=== PATIENT | female | born 1935 | race Caucasian/White ===

== ENCOUNTER 2021-10-06 13:05 | Inpatient (IN) | payer MEDICARE, OTHER, SELFPAY ==
[2021-10-06] VITALS (10 sets, daily range): BP systolic 117–171; BP diastolic 58–80; PULSE 57–70; RESP 14–18; TEMP 36.4–37.2; O2SAT 89–100; BMI 29.7; BMI 31.6
--- NOTE | ~2021-10-06 | CT_ITS ---
EXAMINATION: CT HEAD WITHOUT CONTRAST CT CERVICAL SPINE WITHOUT CONTRAST CLINICAL INFORMATION: Fall. On Eliquis COMPARISON: CT head 03/11/2019 TECHNIQUE: Imaging was performed from the skull base to vertex without intravenous administration of contrast. In addition, helical noncontrast CT imaging was acquired through the cervical spine and source images were reviewed along with axial reconstructions and sagittal and coronal MPRs. [This CT examination was performed using dose optimization techniques as appropriate, variously including the following: *Automated exposure control *Adjustment of mA and/or kV according to patient size (this includes techniques or standardized protocols for targeted exams where dose is matched to indication/reason for exam; i.e. extremities or head) *Use of iterative reconstruction technique] DLP: 2554 mGy-cm FINDINGS: HEAD: No intracranial mass, hemorrhage, or midline shift is visualized. There is generalized global volume loss. There is moderate prominence of the ventricles and the sulci . There is moderate hypodensity of the periventricular white matter due to chronic small vessel ischemic disease. There are vascular calcifications of the internal carotid arteries bilaterally. No extra-axial collections are identified. The paranasal sinuses and mastoid air cells are well aerated. CERVICAL SPINE: There is no evidence of acute cervical spine fracture. Vertebral bodies remain normal in height. Cervical vertebrae have normal alignment. There is multilevel degenerative spondylosis of the cervical spine with disc height narrowing and endplate spurs and facet joint arthrosis No pre- or paravertebral soft tissue abnormality is identified. Limited assessment of the lung apices is unremarkable. CT/CT cervical spine wo con IMPRESSION: 1. No acute intracranial pathology. 2. No CT evidence of acute cervical spine fracture or traumatic subluxation
--- NOTE | ~2021-10-06 | XR_ITS ---
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 The prostheses are in good position. No fractures or dislocations are seen. No pelvic fracture is identified. There is a comminuted fracture involving the distal left femoral metaphysis generalized osteopenia is present. No significant fracture fragment angulation is seen. The distal fracture fragment is slightly lateral. Tricompartmental degenerative changes present in the knee. Marked calcifications are seen. XR/XR knee LT 2V IMPRESSION: Comminuted distal left femoral metaphyseal fracture.
--- NOTE | ~2021-10-06 | XR_ITS ---
EXAMINATION: XR CHEST CLINICAL INFORMATION: Fracture of femur. COMPARISON: Chest x-ray 06/20/2019 TECHNIQUE: Frontal view of the chest was obtained. 4:44 PM FINDINGS: Lungs are clear. No pulmonary vascular congestion. There is no pleural effusion. The heart size is normal. The cardiac and mediastinal contours are normal. There are calcifications of the thoracic aorta. There are multilevel degenerative changes of dorsal spine. XR/XR chest 1V IMPRESSION: Unremarkable examination.
--- NOTE | ~2021-10-06 | CT_ITS ---
EXAMINATION: CT OF THE LEFT KNEE WITHOUT CONTRAST. CLINICAL INFORMATION: Left distal femoral fracture. COMPARISON: Radiographs from the same date. TECHNIQUE: Multidetector volumetric imaging was obtained through the left distal femur without contrast. Multiplanar reformatted images in coronal and sagittal orientations were submitted. This CT examination was performed using dose optimization techniques as appropriate, variously including the following: *Automated exposure control *Adjustment of mA and/or kV according to patient size (this includes techniques or standardized protocols for targeted exams where dose is matched to indication/reason for exam; i.e. extremities or head) *Use of iterative reconstruction technique DLP: 263 mGy-cm FINDINGS: Bones are osteopenic. There is a comminuted fracture of the distal femoral metadiaphysis with a nondisplaced sagittally oriented component extending into the central trochlear groove and medial trochlear facet. No additional involvement of the articular surfaces of the distal femur. The metaphyseal cortical fragments are all mildly displaced. There is slight valgus angulation of the dominant femoral fracture fragments as well as posterior displacement of the distal fracture fragment (0.5 to 1 cm). There is a large lipohemarthrosis. Proximal tibia and fibula are intact. Patella is intact. There is moderate tricompartmental osteoarthritis with nonuniform joint space narrowing, marginal osteophytes, and articular cortical remodeling. Soft tissue swelling and subcutaneous edema are present around the knee circumferentially. Mild to moderate generalized muscle atrophy. No large extra-articular hematomas are identified. Calcific atherosclerosis is present in the popliteal and runoff arteries. CT/CT knee LT wo con IMPRESSION: Comminuted distal femoral metadiaphyseal fracture with nondisplaced intra-articular extension into the trochlea. Large lipohemarthrosis. Moderate tricompartmental osteoarthritis.
--- NOTE | ~2021-10-06 | XR_ITS ---
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 The prostheses are in good position. No fractures or dislocations are seen. No pelvic fracture is identified. There is a comminuted fracture involving the distal left femoral metaphysis generalized osteopenia is present. No significant fracture fragment angulation is seen. The distal fracture fragment is slightly lateral. Tricompartmental degenerative changes present in the knee. Marked calcifications are seen. XR/XR hip LT min 2V IMPRESSION: Comminuted distal left femoral metaphyseal fracture.
--- NOTE | ~2021-10-06 | XR_ITS ---
EXAMINATION: XR FEMUR, LEFT CLINICAL INFORMATION: Evaluate fracture COMPARISON: Knee films done earlier TECHNIQUE: AP and lateral views of the left femur were obtained. FINDINGS: Proximal prosthesis is noted. No acute finding on single image in that vicinity. Once again comminuted fracture of the distal femur is noted. Fracture fragments distracted about the fracture site. I cannot exclude that fracture lines would communicate with the articulation. XR/XR femur LT 2V IMPRESSION: Once again comminuted fracture the distal femur is seen with distraction fracture sites about the region. Cannot exclude communication with the articulation.
--- NOTE | 2021-10-06 13:24 | ED.FALL ---
HPI - Fall General Chief Complaint: Fall Stated Complaint: FALL OOB,HIP PAIN W/SHORTENING [facility] Time Seen by Provider: 10/06/21 13:24 Source: patient and EMS Mode of arrival: EMS Limitations: no limitations History of Present Illness HPI Narrative: Patient is an 85 year old female presenting to the emergency department today with left knee pain and left hip pain after a fall. Patient states that she was attempting to get out of bed when she tripped and fell. Patient states that she landed directly on her left knee and then rolled onto her left hip. Patient states that she lives in a shelter facility and takes eliquis. Patient states that she cannot usually ambulate well and uses a wheelchair and a walker. Patient denies any dizziness, lightheadedness, abdominal pain, nausea, vomiting, fever, chills, blurry vision, double vision, loss of vision, chest pain, difficulty breathing, shortness of breath, back pain, night sweats, pain with urination, increased urinary frequency, increased urinary urgency, blood in her urine or stool, syncope or a near syncopal episode, bowel incontinence, bladder incontinence, bowel retention, bladder retention, or any other complaints at this time. MD complaint: fall Onset (ago): minute(s) Fall from: out of bed Fall witnessed: yes, by living facility staff Place fall occurred: [facility] Loss of consciousness: none Prolonged down time: no Symptoms prior to fall: none Context: tripped/slipped Location of injury: other (left knee and hip) Severity: mild Severity scale (1-10): 4 Quality: dull Related Data Home Medications Medication Instructions Recorded Confirmed acetaminophen 325 mg tablet 650 mg PO Q4H PRN 10/06/21 10/06/21 amlodipine 5 mg tablet 1 tab PO BEDTIME 10/06/21 10/06/21 apixaban 5 mg tablet (Eliquis) 1 tab PO BID 10/06/21 10/06/21 bisacodyl 10 mg rectal suppository 10 mg MD DAILY PRN 10/06/21 10/06/21 citalopram 20 mg tablet 1 tab PO DAILY 10/06/21 10/06/21 dextrose 40 % oral gel (Glucose 10 g PO ONCE PRN 10/06/21 10/06/21 Gel) glucagon HCl 1 mg solution for 1 mg SUBCUT ONCE PRN 10/06/21 10/06/21 injection (Glucagon (HCl) Emergency Kit) insulin aspart U-100 100 unit/mL See Protocol SUBCUT TIDAC 10/06/21 10/06/21 subcutaneous solution (Novolog U-100 Insulin aspart) insulin detemir U-100 100 unit/mL 30 unit SUBCUT DAILY 10/06/21 10/06/21 subcutaneous solution (Levemir U-100 Insulin) insulin detemir U-100 100 unit/mL 38 unit SUBCUT BEDTIME 10/06/21 10/06/21 subcutaneous solution (Levemir U-100 Insulin) lisinopril 10 mg tablet 1 tab PO DAILY 10/06/21 10/06/21 magnesium hydroxide 400 mg/5 mL 30 ml PO DAILY PRN 10/06/21 10/06/21 oral suspension (Milk of Magnesia) metoprolol tartrate 25 mg tablet 75 mg PO BID 10/06/21 10/06/21 naloxone 4 mg/actuation nasal spray 4 mg INTRANASAL BID PRN 10/06/21 10/06/21 sennosides 8.6 mg tablet (senna) 17.2 mg PO BEDTIME 10/06/21 10/06/21 sitagliptin 100 mg tablet (Januvia) 1 tab PO DAILY 10/06/21 10/06/21 Allergies Allergy/AdvReac Type Severity Reaction Status Date / Time No Known Allergies Allergy Mild NKA Unverified 03/04/20 14:52 Review of Systems Constitutional: Constitutional: Reports no additional constitutional complaints, Denies chills, Denies fever(s) and Denies night sweats Eyes: Eyes: Reports no additional eye complaints, Denies blurry vision, Denies change in vision, Denies diplopia, Denies eye discharge, Denies loss of vision and Denies eye pain ENT: Denies dizziness Cardiovascular: Cardiovascular: Reports no additional cardiovascular complaints, Denies chest pain, Denies lightheadedness, Denies Loss of Consciousness and Denies dyspnea Respiratory: Respiratory: Reports no additional respiratory complaints and Denies dyspnea Gastrointestinal: Gastrointestinal: Reports no additional gastrointestinal complaints, Denies abdominal pain, Denies melena, Denies hematochezia, Denies change in bowel habits and Denies change in stool character Genitourinary: Genitourinary: Denies hematuria, Denies urinary frequency, Denies dysuria, Denies urinary incontinence, Denies urinary hesitancy and Denies urinary urgency Musculoskeletal: Musculoskeletal: Reports no additional musculoskeletal complaints, Denies numbness and Denies tingling Comments: left knee pain, left hip pain Neurologic: Denies dizziness, Denies loss of vision, Denies numbness and Denies tingling Psychiatric: Psychiatric: Reports no additional psychiatric complaints Endocrine: Endocrine: Reports no additional endocrine complaints Hematologic/Lymphatic: Hematologic/Lymphatic: Reports no additional hematologic/lymphatic complaints Allergic/Immunologic: Allergic/Immunologic: Reports no additional allergic/immunologic complaints [facility] Past Medical History Attestation statement: The following information was validated with the patient. Source: old records reviewed Medical History Cognitive communication deficit COVID-19 DM (diabetes mellitus) Dysphagia Hyperlipemia Hyperparathyroidism Major depression Paroxysmal A-fib SVT (supraventricular tachycardia) Social History Social History Smoked in Last 30 Days: No Use of substances other than those prescribed or required for medical reasons: No Advance Directives: Yes Advance Directives on File: Yes Advance Directives Date on File: 10/06/21 Physical Exam Vital Signs: Vital Signs: Last Vital Signs Temp 98.3 F 10/06/21 14:58 Pulse 58 10/06/21 14:58 Resp 16 10/06/21 14:58 BP 164/70 H 10/06/21 14:58 Pulse Ox 95 10/06/21 14:58 BMI result Body Mass Index 29.7 Const: General: cooperative, no acute distress, alert and awake Nutritional Appearance: well nourished Orientation/consciousness: patient oriented x3 Limitations: no limitations HEENT: Head: Yes normal to inspection and Yes atraumatic Ears: hearing grossly normal bilaterally and external ears normal General nose exam: Normal external nose present, no nasal discharge noted and no epistaxis Face and sinus: Yes normal facial exam, No abrasion and No laceration Mouth: Normal oral and palatal mucosa present, no drooling and no muffled voice Eyes: General: appearance normal, both eyes and all related structures Periorbital: periorbital findings normal Eyelids: Yes eyelids normal Conjunctivae: conjunctivae normal Pupils: Equal, round and reactive pupils present EOM: EOMs intact bilaterally Neck: Neck: Yes normal visual inspection, Yes full ROM and Yes no lymphadenopathy Chest: Chest palpation & inspection: normal inspection of the chest Resp: Effort & Inspection: normal respiratory effort and able to speak in complete sentences Auscultation: clear to auscultation bilaterally Cardio: Rate: regular rate Rhythm: regular rhythm GI: Inspection: Yes normal to inspection Neuro: General: patient oriented x3 and moves all extremities Cranial nerves: Yes Equal, round and reactive pupils present Cognition (Neuro): normal cognition Motor exam (neuro): 5/5 motor strength present throughout Sensory Exam: Normal double simultaneous stimulation for sensation Coordination: [id number] test normal Extrem: Other: pain with palpation to the left thigh General: Yes capillary refill normal Psych: Appearance: grossly normal Mental Status: mental status grossly normal Affect: normal affect Attitude: cooperative Thought process: Normal thought process present Thought content: Normal thought content present Insight: Good insight present (Psych) MDM - Fall MDM Narrative Medical decision making narrative: Patient is an 85 year old female presenting to the emergency department today with left knee and left hip pain. Patient's physical exam showed tenderness to palpation of the left femur but was otherwise unremarkable. Patient's blood work showed an elevated white blood cell count however, I am not suspicious of infection or sepsis in this patient. Patient's EKG was unremarkable. Patient's head and C-Spine CTs were negative. Patient's extensive imaging of the left lower extremity showed a comminuted fracture of the left femur. I explained my physical exam findings as well as all test results to the patient. I answered all questions asked by the patient. I spoke to orthopedics consultant intern who recommended the patient have a CT of the left lower leg and be admitted to medicine. I spoke to Dr. Wang, who agreed to hospital admission. Patient verbalized agreement and understanding with this treatment plan and admission. Differential Diagnosis Differential diagnosis: Likely fracture and compression fracture Medical Records Attestation: I reviewed the patient's medical records. Lab Data Attestation: I reviewed the patient's lab results. Result diagrams: 10/06/21 16:09 10/06/21 16:09 Labs: Lab Results 10/06/21 10/06/21 10/06/21 Range/Units 16:09 16:09 16:09 WBC 17.2 H (4.8-10.8) X10*3/uL RBC 4.24 (4.20-5.50) X10*6/uL Hgb 12.5 (12.0-16.0) g/dl Hct 38.6 (37.0-47.0) % MCV 91.0 (80.0-98.0) fL MCH 29.5 (27.0-33.0) pg MCHC 32.4 (31.0-35.0) g/dl RDW 13.2 (11.0-16.0) % Plt Count 175 (160-400) X10*3/uL MPV 12.3 (9.4-12.3) fL Immature Gran % (Auto) 0.6 H (0.0-0.4) % Neut % (Auto) 86.7 H (45-73) % Lymph % (Auto) 8.0 L (20-40) % Alcorn % (Auto) 4.1 (2-11) % Eos % (Auto) 0.3 (0-4) % Baso % (Auto) 0.3 (0-2) % Lymph # (Auto) 1.4 (1.2-4.9) X10*3/uL Alcorn # (Auto) 0.7 (0.1-1.2) X10*3/uL Eos # (Auto) 0.1 (0.0-0.4) X10*3/uL Baso # (Auto) 0.1 (0.0-0.2) X10*3/uL Abs Immat Gran (auto) 0.10 H (0.00-0.03) X10*3/uL Absolute Neuts (auto) 14.9 H (2.0-8.3) x10*3/uL Absolute Nucleated RBC 0.000 (0.0-0.012) X10*3/uL Nucleated RBC % (auto) 0.0 (0.0-0.2) /100WBC PT 15.0 H (9.9-13.0) SEC INR 1.3 H (0.9-1.1) APTT 32.5 (24.1-38.0) SEC Sodium 136 (135-145) mmol/L Potassium 4.6 (3.3-5.1) mmol/L Chloride 102 (96-108) mmol/L Carbon Dioxide 26 (22-29) mmol/L Anion Gap 13 (12-20) BUN 13 (9-16) mg/dL Creatinine 0.86 (0.5-1.4) mg/dL Estim Creat Clear Calc 54.9 Estimated GFR > 60 Random Glucose 311 H (60-115) mg/dL Calcium 11.0 H (8.4-10.2) mg/dL Total Bilirubin 0.5 (0.0-1.0) mg/dL AST 25 (5-31) U/L ALT 21 (0-31) U/L Alkaline Phosphatase 73 (39-117) U/L Total Protein 7.3 (6.5-8.0) g/dL Albumin 3.4 L (3.5-5.0) g/dL Imaging Data Left hip and left knee x-ray: Attestation: I personally reviewed and interpreted this imaging study as follows: My impression: femur fracture Radiologist's impression: EXAMINATION: LEFT HIP, LEFT CLINICAL INFORMATION: Fall with left hip and left knee pain? COMPARISON: None? TECHNIQUE: 2 views pelvis with 3 additional views left hip, 3 views left knee? 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 The prostheses are in good position. No fractures or dislocations are seen. No pelvic fracture is identified. There is a comminuted fracture involving the distal left femoral metaphysis generalized osteopenia is present. No significant fracture fragment angulation is seen. The distal fracture fragment is slightly lateral. Tricompartmental degenerative changes present in the knee. Marked calcifications are seen.? XR/XR hip LT min 2V IMPRESSION: Comminuted distal left femoral metaphyseal fracture.? Dictated By: Raffy Ch MD Signed By: Electronically signed by Raffy Ch MD 10/06/[address] Cervical Spine: Attestation: I personally reviewed and interpreted this imaging study as follows: My impression: No acute process. Radiologist's impression: EXAMINATION: CT HEAD WITHOUT CONTRAST CT CERVICAL SPINE WITHOUT CONTRAST CLINICAL INFORMATION: Fall. On Eliquis? COMPARISON: CT head 03/11/2019 TECHNIQUE: Imaging was performed from the skull base to vertex without intravenous administration of contrast. In addition, helical noncontrast CT imaging was acquired through the cervical spine and source images were reviewed along with axial reconstructions and sagittal and coronal MPRs. [This CT examination was performed using dose optimization techniques as appropriate, variously including the following: *Automated exposure control *Adjustment of mA and/or kV according to patient size (this includes techniques or standardized protocols for targeted exams where dose is matched to indication/reason for exam; i.e. extremities or head) *Use of iterative reconstruction technique] DLP: 2554 mGy-cm FINDINGS: HEAD: No intracranial mass, hemorrhage, or midline shift is visualized. There is generalized global volume loss. There is moderate prominence of the ventricles and the sulci . There is moderate hypodensity of the periventricular white matter due to chronic small vessel ischemic disease. There are vascular calcifications of the internal carotid arteries bilaterally. No extra-axial collections are identified. The paranasal sinuses and mastoid air cells are well aerated. CERVICAL SPINE: There is no evidence of acute cervical spine fracture. Vertebral bodies remain normal in height. Cervical vertebrae have normal alignment. There is multilevel degenerative spondylosis of the cervical spine with disc height narrowing and endplate spurs and facet joint arthrosis No pre- or paravertebral soft tissue abnormality is identified. Limited assessment of the lung apices is unremarkable. CT/CT cervical spine wo con IMPRESSION: 1. No acute intracranial pathology. 2. No CT evidence of acute cervical spine fracture or traumatic subluxation Dictated By: Isra Wong MD Signed By: Electronically signed by Isra Wong MD 10/06/[address]: Attestation: I personally reviewed and interpreted this imaging study as follows: My impression: femur fracture Radiologist's impression: EXAMINATION: CT OF THE LEFT KNEE WITHOUT CONTRAST. CLINICAL INFORMATION: Left distal femoral fracture.? COMPARISON: Radiographs from the same date.? TECHNIQUE: Multidetector volumetric imaging was obtained through the left distal femur without contrast. Multiplanar reformatted images in coronal and sagittal orientations were submitted. This CT examination was performed using dose optimization techniques as appropriate, variously including the following: *Automated exposure control *Adjustment of mA and/or kV according to patient size (this includes techniques or standardized protocols for targeted exams where dose is matched to indication/reason for exam; i.e. extremities or head) *Use of iterative reconstruction technique DLP: 263 mGy-cm FINDINGS: Bones are osteopenic. There is a comminuted fracture of the distal femoral metadiaphysis with a nondisplaced sagittally oriented component extending into the central trochlear groove and medial trochlear facet. No additional involvement of the articular surfaces of the distal femur. The metaphyseal cortical fragments are all mildly displaced. There is slight valgus angulation of the dominant femoral fracture fragments as well as posterior displacement of the distal fracture fragment (0.5 to 1 cm). There is a large lipohemarthrosis. Proximal tibia and fibula are intact. Patella is intact. There is moderate tricompartmental osteoarthritis with nonuniform joint space narrowing, marginal osteophytes, and articular cortical remodeling. Soft tissue swelling and subcutaneous edema are present around the knee circumferentially. Mild to moderate generalized muscle atrophy. No large extra-articular hematomas are identified. Calcific atherosclerosis is present in the popliteal and runoff arteries. CT/CT knee LT wo con IMPRESSION: Comminuted distal femoral metadiaphyseal fracture with nondisplaced intra-articular extension into the trochlea. ? Large lipohemarthrosis. ? Moderate tricompartmental osteoarthritis. <Electronically kelley 10/06/21 1703 ECG Data Attestation: I personally reviewed and interpreted this ECG as follows: ECG interpretation date: 10/06/21 ECG interpretation time: 17:05 Prior ECG tracings: available for review Interpretation: Vent. Rate: 063 BPM ? ? Atrial Rate: 060 BPM P-R Int: 140 ms? QRS Dur: 086 ms QT Int: 434 ms ? ? ? P-R-T Axes: 052 069 094 degrees QTc Int: 444 ms Undetermined rhythm Nonspecific ST abnormality Abnormal ECG When compared with ECG of 20-JUN-2019 18:21, Current undetermined rhythm precludes rhythm comparison, needs review DD/ [id number] Discharge Plan Discharge Clinical Impression: Closed femur fracture, Fall Patient Disposition: Admitted As Inpatient Print Language: Icelandic
[2021-10-06 16:14] LABS: MANUAL DIFF FLAG NO
[2021-10-06 16:15] LABS: Basophils Absolute Auto 0.1 X10*3/uL (0.0-0.2); Basophils Percent Auto 0.3 % (0-2); Eosinophils Absolute Auto 0.1 X10*3/uL (0.0-0.4); Eosinophils Percent Auto 0.3 % (0-4); Hematocrit 38.6 % (37.0-47.0); Hemoglobin 12.5 g/dl (12.0-16.0); Imm Gran Pct Auto 0.6 % (0.0-0.4); Lymphocytes Absolute Auto 1.4 X10*3/uL (1.2-4.9); Mean Corpuscular HGB Conc 32.4 g/dl (31.0-35.0); Mean Corpuscular Hemoglobin 29.5 pg (27.0-33.0); Mean Platelet Volume 12.3 fL (9.4-12.3); Monocytes Absolute Auto 0.7 X10*3/uL (0.1-1.2); Monocytes Percent Auto 4.1 % (2-11); Neutrophils Absolute Auto 14.9 x10*3/uL (2.0-8.3); Neutrophils Percent Auto 86.7 % (45-73); Platelet Count 175 X10*3/uL (160-400); Red Blood Count 4.24 X10*6/uL (4.20-5.50); Red Cell Distribution Width 13.2 % (11.0-16.0); White Blood Count 17.2 X10*3/uL (4.8-10.8)
[2021-10-06 16:28] LABS: INTERNATIONAL NORM RATIO 1.3 (0.9-1.1)
[2021-10-06 16:31] LABS: Alanine Aminotransferase 21 U/L (0-31); Albumin Level 3.4 g/dL (3.5-5.0); Alkaline Phosphatase 73 U/L (39-117); Anion Gap 13 (12-20); Aspartate Amino Transferase 25 U/L (5-31); Bilirubin Total 0.5 mg/dL (0.0-1.0); Blood Urea Nitrogen 13 mg/dL (9-16); Carbon Dioxide 26 mmol/L (22-29); Chloride 102 mmol/L (96-108); Creatinine Clr Calc Pharmacy 54.9; Estimated Glomerular Filt Rate > 60; Glucose Random 311 mg/dL (60-115); Partial Thromboplastin Time 32.5 SEC (24.1-38.0); Potassium 4.6 mmol/L (3.3-5.1); Sodium 136 mmol/L (135-145); Total Protein 7.3 g/dL (6.5-8.0)
--- NOTE | 2021-10-06 16:42 | ECG_ITS ---
Test Reason : HX OF AFIB Blood Pressure : / mmHG Vent. Rate : 063 BPM Atrial Rate : 060 BPM P-R Int : 140 ms QRS Dur : 086 ms QT Int : 434 ms P-R-T Axes : 052 069 094 degrees QTc Int : 444 ms Normal sinus rhythm Nonspecific ST abnormality Abnormal ECG When compared with ECG of 20-JUN-2019 18:21, Nonspecific ST abnormality noted Referred By: May Duncan Electronically Signed By:ELA FINCH MD
--- NOTE | 2021-10-06 17:18 | PHA.MEDREC ---
Pharmacy Consult ? Medication Reconciliation Pharmacy has completed the medication reconciliation. No remarkable issues. Mitzi Rosas, AntoineD
[2021-10-06] MEDS: Morphine Sulfate 4 MG/ML CARTRIDGE IVPUSH (17:57)
[2021-10-06] MEDS: ondansetron HCL 4 MG/2 ML VIAL IVPUSH (17:58)
--- NOTE | 2021-10-06 18:07 | PC.NURSE ---
pt desat to 89% after morphine admin, placed on 2lpm, 95% at this time
[2021-10-06 18:08] LABS: COVID-19 Test Negative (Negative); IDNOW Serial# 16C4AD1C
[2021-10-06 18:08] LABS: Phosphorus 2.2 mg/dL (2.7-4.5)
--- NOTE | 2021-10-06 18:29 | P.HPHOSP_ITS ---
History of Present Illness Date of Service: 10/06/21 Attending physician on admission: Vale Wang Chief Complaint: knee fx History was taken with the help of miss britney shaw patient's primary contact as well as patient. 85-year-old female past medical history of hypertension, hyperlipidemia, diabetes, ch afib, also history of possible cognitive impairment -patient came to the hospital status post fall, It seems that the patient is mostly bedbound 2-3 years and she was trying to get out of the bed today and then she fell down and afterwards started having knee pain and was sent to the emergency room for evaluation for that. Patient uses a wheelchair barely weekly. Spoke to the art therapy specialist and patient: Denied any palpitation or chest pain or shortness of breath or cough or any nausea or vomiting or fever or chills or any urinary complaints or abdominal pain or fever or chills. Patient has knee pain. HPI is limited because patient is poor historian. Review of Systems Review of Systems: As above. Yes all other systems are reviewed and are negative [facility] Medical History Cognitive communication deficit COVID-19 DM (diabetes mellitus) Dysphagia Hyperlipemia Hyperparathyroidism Major depression Paroxysmal A-fib SVT (supraventricular tachycardia) Pertinent family history: Patient does not remember any family history, her primary contact does not remember if any family member has any medical issues. Social History Smoked in Last 30 Days: No Use of substances other than those prescribed or required for medical reasons: No Advance Directives: Yes Advance Directives on File: Yes Advance Directives Date on File: 10/06/21 Meds Allergies Allergy/AdvReac Type Severity Reaction Status Date / Time No Known Allergies Allergy Mild NKA Unverified 03/04/20 14:52 Active Medications: Current Medications Acetaminophen (Acetaminophen 325 Mg Tablet) 650 mg PO Q4H PRN PRN Reason: Fever Amlodipine Besylate (Amlodipine Besylate 5 Mg Tablet) 5 mg PO BEDTIME MARYAN; Protocol Bisacodyl (Bisacodyl 10 Mg Supp.Rect) 10 mg OH DAILY PRN PRN Reason: Constipation Escitalopram Oxalate (Escitalopram Oxalate 10 Mg Tablet) 10 mg PO DAILY MARYAN Glucose (Glucose Gel 15 Gm Gel..Gram.) 10 gm PO ONCE PRN PRN Reason: Hypoglycemia Lactated Ringer's (Lr) 1,000 mls @ 80 mls/hr IVCONT .[id number] [facility] Insulin Glargine (Insulin Glargine,Hum.Rec.Anlog 100 Unit/Ml 10 Ml Vial) 21 unit SUBCUT DAILY [facility] Insulin Glargine (Insulin Glargine,Hum.Rec.Anlog 100 Unit/Ml 10 Ml Vial) 26 unit SUBCUT BEDTIME [facility] Insulin Human Lispro (Insulin Lispro 100 Unit/Ml 3 Ml Vial) 0 unit SUBCUT QIDACHS [facility]; Protocol Lisinopril (Lisinopril 10 Mg Tablet) 10 mg PO DAILY [facility]; Protocol Magnesium Hydroxide (Milk Of Magnesia 30 Ml Oral.Susp) 30 ml PO DAILY PRN PRN Reason: Constipation Metoprolol Tartrate (Metoprolol Tartrate 25 Mg Tablet) 75 mg PO BID [facility]; Protocol Naloxone HCl (Naloxone Hcl Nasal 4 Mg [place]) 4 mg NOSTRILALT BID PRN PRN Reason: Drug Intoxication Symptoms Pharmacy Consult (Consult Rx Perform Med Rec) 1 each MISCELLANE ONCE PRN PRN Reason: Consult order Senna (Sennosides 8.6 Mg Tablet) 17.2 mg PO BEDTIME [facility] Sitagliptin Phosphate (Sitagliptin Phosphate 100 Mg Tablet) 100 mg PO DAILY [facility] Sodium Chloride (0.9 % Sodium Chloride Flush 3 Ml Syringe) 3 ml IVFLUSH QSHIFT [facility] Home Medications Medication Instructions Recorded Confirmed Last Taken Type acetaminophen 325 mg tablet 650 mg PO Q4H PRN 10/06/21 10/06/21 Unknown History amlodipine 5 mg tablet 1 tab PO BEDTIME 10/06/21 10/06/21 Unknown History apixaban 5 mg tablet (Eliquis) 1 tab PO BID 10/06/21 10/06/21 Unknown History bisacodyl 10 mg rectal suppository 10 mg OH DAILY PRN 10/06/21 10/06/21 Unknown History citalopram 20 mg tablet 1 tab PO DAILY 10/06/21 10/06/21 Unknown History dextrose 40 % oral gel (Glucose 10 g PO ONCE PRN 10/06/21 10/06/21 Unknown History Gel) glucagon HCl 1 mg solution for 1 mg SUBCUT ONCE PRN 10/06/21 10/06/21 Unknown History injection (Glucagon (HCl) Emergency Kit) insulin aspart U-100 100 unit/mL See Protocol SUBCUT TIDAC 10/06/21 10/06/21 Unknown History subcutaneous solution (Novolog U-100 Insulin aspart) insulin detemir U-100 100 unit/mL 30 unit SUBCUT DAILY 10/06/21 10/06/21 Unknown History subcutaneous solution (Levemir U-100 Insulin) insulin detemir U-100 100 unit/mL 38 unit SUBCUT BEDTIME 10/06/21 10/06/21 Unknown History subcutaneous solution (Levemir U-100 Insulin) lisinopril 10 mg tablet 1 tab PO DAILY 10/06/21 10/06/21 Unknown History magnesium hydroxide 400 mg/5 mL 30 ml PO DAILY PRN 10/06/21 10/06/21 Unknown History oral suspension (Milk of Magnesia) metoprolol tartrate 25 mg tablet 75 mg PO BID 10/06/21 10/06/21 Unknown History naloxone 4 mg/actuation nasal spray 4 mg INTRANASAL BID PRN 10/06/21 10/06/21 Unknown History sennosides 8.6 mg tablet (senna) 17.2 mg PO BEDTIME 10/06/21 10/06/21 Unknown History sitagliptin 100 mg tablet (Januvia) 1 tab PO DAILY 10/06/21 10/06/21 Unknown History Physical Exam Vital Signs and Narrative: Vital Signs: Last Vital Signs Temp 98.3 F 10/06/21 14:58 Pulse 69 10/06/21 18:02 Resp 14 10/06/21 18:02 BP 162/58 H 10/06/21 18:04 Pulse Ox 94 10/06/21 18:06 BMI result Body Mass Index 29.7 Appearance: Alert.? Oriented X2.? not in distress.? Eyes: Pupils equal, round and reactive to light.? Sclera nonicteric.? ENT: Pharynx normal.? Moist mucous membranes. cvs: rrr, [id number] , no murmur res: clear to auscultation ,no rhonchii or wheezing abd: no rebound or guarding ,nt, bs present. ext pulses present , no cyanosis left knee pain and mild swellin neuro: axo2 , nonfocal. Results Labs CBC and Chem 7: 10/06/21 16:09 10/06/21 16:09 Labs: Laboratory Results - last 24 hr 10/06/21 10/06/21 10/06/21 16:09 16:09 16:09 MCV 91.0 MCH 29.5 MCHC 32.4 RDW 13.2 Plt Count 175 MPV 12.3 Immature Gran % (Auto) 0.6 H Neut % (Auto) 86.7 H Lymph % (Auto) 8.0 L [place] % (Auto) 4.1 Eos % (Auto) 0.3 Baso % (Auto) 0.3 Lymph # (Auto) 1.4 [place] # (Auto) 0.7 Eos # (Auto) 0.1 Baso # (Auto) 0.1 Abs Immat Gran (auto) 0.10 H Absolute Neuts (auto) 14.9 H Absolute Nucleated RBC 0.000 Nucleated RBC % (auto) 0.0 PT 15.0 H INR 1.3 H APTT 32.5 Anion Gap 13 Estim Creat Clear Calc 54.9 Estimated GFR > 60 Random Glucose 311 H Calcium 11.0 H Phosphorus 2.2 L Total Bilirubin 0.5 AST 25 ALT 21 Alkaline Phosphatase 73 Total Protein 7.3 Albumin 3.4 L COVID-19 (SHANDA) COVID-19 Clin Com 10/06/21 17:40 MCV MCH MCHC RDW Plt Count MPV Immature Gran % (Auto) Neut % (Auto) Lymph % (Auto) [place] % (Auto) Eos % (Auto) Baso % (Auto) Lymph # (Auto) [place] # (Auto) Eos # (Auto) Baso # (Auto) Abs Immat Gran (auto) Absolute Neuts (auto) Absolute Nucleated RBC Nucleated RBC % (auto) PT INR APTT Anion Gap Estim Creat Clear Calc Estimated GFR Random Glucose Calcium Phosphorus Total Bilirubin AST ALT Alkaline Phosphatase Total Protein Albumin COVID-19 (SHANDA) Negative COVID-19 Clin Com See Note ECG Attestation: I personally reviewed and interpreted this ECG as follows: (nsr with very small p waves otherwise seems similar to previous ekg) Imaging Radiologist's Impressions: Impressions Hip X-Ray 10/06/21 14:22 IMPRESSION: Comminuted distal left femoral metaphyseal fracture. Knee X-Ray 10/06/21 14:22 IMPRESSION: Comminuted distal left femoral metaphyseal fracture. Cervical Spine CT 10/06/21 14:47 IMPRESSION: 1. No acute intracranial pathology. 2. No CT evidence of acute cervical spine fracture or traumatic subluxation Head CT 10/06/21 14:47 IMPRESSION: 1. No acute intracranial pathology. 2. No CT evidence of acute cervical spine fracture or traumatic subluxation Knee CT 10/06/21 16:41 IMPRESSION: Comminuted distal femoral metadiaphyseal fracture with nondisplaced intra-articular extension into the trochlea. Large lipohemarthrosis. Moderate tricompartmental osteoarthritis. Femur X-Ray 10/06/21 16:52 IMPRESSION: Once again comminuted fracture the distal femur is seen with distraction fracture sites about the region. Cannot exclude communication with the articulation. Assessment and Plan (1) Closed femur fracture: Status: Acute Plan 85-year-old female with multiple comorbidities including hypertension, dyslipidemia, diabetes, PAF: Came to the hospital after mechanical fall has right knee fracture. 1. Right knee fracture: NPO past midnight, hold Eliquis, surgery evaluation Incentive spirometry, Chest physiotherapy, pain control,base bowel regimen. 2. Hypertension: Hold lisinopril in anticipation of surgery Continue amlodipine, metoprolol 3. PAF: seems sinus moniter on tele moniter on tele continue bb,hold eliquis as above. 4. dm: Fingerstick with sliding scale coverage Hold Lantus 5. Cognitive impairment or dementia unclear etiology:long standing years As per the art therapy specialist she is at her baseline Supportive care. DVT prophylaxis:scd Above management discussed with patient art therapy specialist miss faustin had on in detail- she understand and in agreement with the above plan. Time spent 70 minute, patient is DNR. Considering knee fracture may need surgical intervention-patient may benefit from 2 midnight stay. Quality Stroke Does the patient have a stroke diagnosis?: No VTE Prior VTE?: No VTE Risk Level:: Medical - moderate - high VTE Device Contraindication: N/A - Device Ordered VTE Drug Contraindication: N/A - Med Ordered
[2021-10-06] MEDS: Lactated Ringers 1,000 ML 80 ML IVCONT (18:35)
--- NOTE | 2021-10-06 19:43 | PC.NURSE ---
called 4th floor to give report, was told RN will call back
--- NOTE | 2021-10-06 20:17 | PC.NURSE ---
Notified of admission at approximately 1935 while in process of admitting another patient. At 2001 pt arrived to floor without report from ED. Guide Escort notified.
[2021-10-06 20:26] LABS: Glucose, Whole Blood 306 mg/dL (60-115)
[2021-10-06 23:09] LABS: Glucose, Whole Blood 294 mg/dL (60-115)
[2021-10-06] MEDS: Insulin Lispro 100 UNIT/ML 3 ML VIAL SUBCUT (23:47)
[2021-10-07 02:57] VITALS: BP 125/65; PULSE 69; RESP 18; TEMP 36.8; O2SAT 97
[2021-10-07] MEDS: Lactated Ringers 1,000 ML 80 ML IVCONT (06:44)
[2021-10-07 06:45] LABS: Hematocrit 33.8 % (37.0-47.0); Hemoglobin 10.8 g/dl (12.0-16.0); Mean Corpuscular Hemoglobin 29.3 pg (27.0-33.0); Mean Corpuscular Volume 91.6 fL (80.0-98.0); Mean Platelet Volume 13.5 fL (9.4-12.3); Platelet Count 158 X10*3/uL (160-400); Red Blood Count 3.69 X10*6/uL (4.20-5.50); Red Cell Distribution Width 13.4 % (11.0-16.0); White Blood Count 12.6 X10*3/uL (4.8-10.8)
[2021-10-07 07:14] LABS: Glucose, Whole Blood 267 mg/dL (60-115)
[2021-10-07 07:18] VITALS: BP 141/62; PULSE 74; RESP 20; TEMP 37.2; O2SAT 96
[2021-10-07 07:30] LABS: Anion Gap 10 (12-20); Blood Urea Nitrogen 15 mg/dL (9-16); Calcium 10.7 mg/dL (8.4-10.2); Carbon Dioxide 27 mmol/L (22-29); Chloride 104 mmol/L (96-108); Creatinine Clr Calc Pharmacy 61.5; Estimated Glomerular Filt Rate > 60; Glucose Random 279 mg/dL (60-115); Potassium 4.6 mmol/L (3.3-5.1); Sodium 136 mmol/L (135-145)
--- NOTE | 2021-10-07 07:36 | P.HPOP_ITS ---
History of Present Illness History of Present Illness Date of Service: 10/07/21 Chief complaint: Knee Fracture Narrative: Opal Burciaga is a 85 year old female who presented to the emergency department yesterday afternoon after sustaining a fall out of bed. The patient has a question of cognitive impairment/dementia and therefore most the HPI was obtained from the ER notes. Patient has a past medical history significant for hypertension, hyperlipidemia, diabetes type 2, AFib on Eliquis in newly found chronic kidney disease stage 3. X-rays obtained in the emergency department of the left knee revealed a distal femur comminuted fracture. Orthopedics was consulted for further evaluation and treatment. The patient was admitted to the medicine service to obtain medical clearance. Review of Systems Review of Systems: Yes all other systems are reviewed and are negative PMFSH Past Medical History Medical History Cognitive communication deficit COVID-19 DM (diabetes mellitus) Dysphagia Hyperlipemia Hyperparathyroidism Major depression Paroxysmal A-fib SVT (supraventricular tachycardia) Social History Social History Housing: Assisted Living Facility Unable to assess alcohol history related to: Unable to respond Patient Tobacco Use Status: Tobacco use Unknown Advance Directives Date on File: 10/06/21 service: No Meds Allergies Allergy/AdvReac Type Severity Reaction Status Date / Time No Known Allergies Allergy Mild NKA Unverified 03/04/20 14:52 Active Medications: Current Medications Acetaminophen (Acetaminophen 325 Mg Tablet) 650 mg PO Q4H PRN PRN Reason: Fever Amlodipine Besylate (Amlodipine Besylate 5 Mg Tablet) 5 mg PO BEDTIME [facility]; Protocol Last Admin: 10/06/21 23:26 Dose: Not Given Documented by: Bisacodyl (Bisacodyl 10 Mg Supp.Rect) 10 mg IA DAILY PRN PRN Reason: Constipation Escitalopram Oxalate (Escitalopram Oxalate 10 Mg Tablet) 10 mg PO DAILY [facility]AN Glucose (Glucose Gel 15 Gm Gel..Gram.) 10 gm PO ONCE PRN PRN Reason: Hypoglycemia Lactated Ringer's (Lr) 1,000 mls @ 80 mls/hr IVCONT .[id number] [facility] Last Admin: 10/07/21 06:44 Dose: 80 mls/hr Documented by: Insulin Glargine (Insulin Glargine,Hum.Rec.Anlog 100 Unit/Ml 10 Ml Vial) 21 unit SUBCUT DAILY [facility] Insulin Human Lispro (Insulin Lispro 100 Unit/Ml 3 Ml Vial) 0 unit SUBCUT QIDACHS [facility]; Protocol Last Admin: 10/06/21 23:47 Dose: 8 unit Documented by: Lisinopril (Lisinopril 10 Mg Tablet) 10 mg PO DAILY [facility]; Protocol Magnesium Hydroxide (Milk Of Magnesia 30 Ml Oral.Susp) 30 ml PO DAILY PRN PRN Reason: Constipation Metoprolol Tartrate (Metoprolol Tartrate 25 Mg Tablet) 75 mg PO BID [facility]; Protocol Last Admin: 10/06/21 23:26 Dose: Not Given Documented by: Naloxone HCl (Naloxone Hcl Nasal 4 Mg [place]) 4 mg NOSTRILALT BID PRN PRN Reason: Drug Intoxication Symptoms Pharmacy Consult (Consult Rx Perform Med Rec) 1 each MISCELLANE ONCE PRN PRN Reason: Consult order Polyethylene Glycol (Polyethylene Glycol 3350 17 Gm Powd.Pack) 17 gm PO DAILY [facility] Last Admin: 10/06/21 23:25 Dose: Not Given Documented by: Senna (Sennosides 8.6 Mg Tablet) 17.2 mg PO BEDTIME [facility] Last Admin: 10/06/21 23:26 Dose: Not Given Documented by: Sitagliptin Phosphate (Sitagliptin Phosphate 100 Mg Tablet) 100 mg PO DAILY [facility] Sodium Chloride (0.9 % Sodium Chloride Flush 3 Ml Syringe) 3 ml IVFLUSH QSHIFT [facility] Last Admin: 10/07/21 01:08 Dose: Not Given Documented by: Home Medications Medication Instructions Recorded Confirmed Last Taken Type acetaminophen 325 mg tablet 650 mg PO Q4H PRN 10/06/21 10/06/21 Unknown History amlodipine 5 mg tablet 1 tab PO BEDTIME 10/06/21 10/06/21 Unknown History apixaban 5 mg tablet (Eliquis) 1 tab PO BID 10/06/21 10/06/21 Unknown History bisacodyl 10 mg rectal suppository 10 mg [place] DAILY PRN 10/06/21 10/06/21 Unknown History citalopram 20 mg tablet 1 tab PO DAILY 10/06/21 10/06/21 Unknown History dextrose 40 % oral gel (Glucose 10 g PO ONCE PRN 10/06/21 10/06/21 Unknown History Gel) glucagon HCl 1 mg solution for 1 mg SUBCUT ONCE PRN 10/06/21 10/06/21 Unknown History injection (Glucagon (HCl) Emergency Kit) insulin aspart U-100 100 unit/mL See Protocol SUBCUT TIDAC 10/06/21 10/06/21 Unknown History subcutaneous solution (Novolog U-100 Insulin aspart) insulin detemir U-100 100 unit/mL 30 unit SUBCUT DAILY 10/06/21 10/06/21 Unknown History subcutaneous solution (Levemir U-100 Insulin) insulin detemir U-100 100 unit/mL 38 unit SUBCUT BEDTIME 10/06/21 10/06/21 Unknown History subcutaneous solution (Levemir U-100 Insulin) lisinopril 10 mg tablet 1 tab PO DAILY 10/06/21 10/06/21 Unknown History magnesium hydroxide 400 mg/5 mL 30 ml PO DAILY PRN 10/06/21 10/06/21 Unknown History oral suspension (Milk of Magnesia) metoprolol tartrate 25 mg tablet 75 mg PO BID 10/06/21 10/06/21 Unknown History naloxone 4 mg/actuation nasal spray 4 mg INTRANASAL BID PRN 10/06/21 10/06/21 Unknown History sennosides 8.6 mg tablet (senna) 17.2 mg PO BEDTIME 10/06/21 10/06/21 Unknown History sitagliptin 100 mg tablet (Januvia) 1 tab PO DAILY 10/06/21 10/06/21 Unknown History Physical Exam Vital Signs: Vital Signs: Last Vital Signs Temp 99.0 F 10/07/21 07:18 Pulse 74 10/07/21 07:18 Resp 20 10/07/21 07:18 BP 141/62 H 10/07/21 07:18 Pulse Ox 96 10/07/21 07:18 BMI result Body Mass Index 31.6 Const: General: cooperative, healthy appearing, comfortable, no acute distress, well developed, alert and awake HEENT: Head: Yes normal to inspection, Yes normocephalic and Yes atraumatic Eyes: General: appearance normal, both eyes and all related structures Neck: Neck: Yes normal visual inspection and Yes no lymphadenopathy Resp: Effort & Inspection: normal respiratory effort and able to speak in complete sentences Cardio: Rate: regular rate Peripheral pulses: Peripheral pulses 2+ throughout GI: Inspection: Yes normal to inspection Palpation (GI): Soft to palpation Skin: General skin exam: no rashes or lesions noted Extrem: Other: Left knee mild to moderate edema. Skin is intact. Pain with any attempt of motion. Sensation is intact. Pedal pulse intact. Psych: Mental Status: mental status grossly normal Results Labs Result Diagrams: 10/07/21 06:06 10/07/21 06:06 Labs: Abnormal lab results 10/06/21 10/06/21 10/06/21 Range/Units 16:09 16:09 16:09 WBC 17.2 H (4.8-10.8) X10*3/uL RBC (4.20-5.50) X10*6/uL Hgb (12.0-16.0) g/dl Hct (37.0-47.0) % Plt Count (160-400) X10*3/uL MPV (9.4-12.3) fL Immature Gran % (Auto) 0.6 H (0.0-0.4) % Neut % (Auto) 86.7 H (45-73) % Lymph % (Auto) 8.0 L (20-40) % Abs Immat Gran (auto) 0.10 H (0.00-0.03) X10*3/uL Absolute Neuts (auto) 14.9 H (2.0-8.3) x10*3/uL PT 15.0 H (9.9-13.0) SEC INR 1.3 H (0.9-1.1) Anion Gap (12-20) POC Glucose (60-115) mg/dL Random Glucose 311 H (60-115) mg/dL Calcium 11.0 H (8.4-10.2) mg/dL Phosphorus 2.2 L (2.7-4.5) mg/dL Albumin 3.4 L (3.5-5.0) g/dL 10/06/21 10/06/21 10/07/21 Range/Units 20:22 23:04 06:06 WBC 12.6 H (4.8-10.8) X10*3/uL RBC 3.69 L (4.20-5.50) X10*6/uL Hgb 10.8 L (12.0-16.0) g/dl Hct 33.8 L (37.0-47.0) % Plt Count 158 L (160-400) X10*3/uL MPV 13.5 H (9.4-12.3) fL Immature Gran % (Auto) (0.0-0.4) % Neut % (Auto) (45-73) % Lymph % (Auto) (20-40) % Abs Immat Gran (auto) (0.00-0.03) X10*3/uL Absolute Neuts (auto) (2.0-8.3) x10*3/uL PT (9.9-13.0) SEC INR (0.9-1.1) Anion Gap (12-20) POC Glucose 306 H 294 H (60-115) mg/dL Random Glucose (60-115) mg/dL Calcium (8.4-10.2) mg/dL Phosphorus (2.7-4.5) mg/dL Albumin (3.5-5.0) g/dL 10/07/21 10/07/21 Range/Units 06:06 07:10 WBC (4.8-10.8) X10*3/uL RBC (4.20-5.50) X10*6/uL Hgb (12.0-16.0) g/dl Hct (37.0-47.0) % Plt Count (160-400) X10*3/uL MPV (9.4-12.3) fL Immature Gran % (Auto) (0.0-0.4) % Neut % (Auto) (45-73) % Lymph % (Auto) (20-40) % Abs Immat Gran (auto) (0.00-0.03) X10*3/uL Absolute Neuts (auto) (2.0-8.3) x10*3/uL PT (9.9-13.0) SEC INR (0.9-1.1) Anion Gap 10 L (12-20) POC Glucose 267 H (60-115) mg/dL Random Glucose 279 H (60-115) mg/dL Calcium 10.7 H (8.4-10.2) mg/dL Phosphorus (2.7-4.5) mg/dL Albumin (3.5-5.0) g/dL H & H 10/06/21 10/07/21 Range/Units 16:09 06:06 Hgb 12.5 10.8 L (12.0-16.0) g/dl Hct 38.6 33.8 L (37.0-47.0) % Coagulation 10/06/21 Range/Units 16:09 INR 1.3 H (0.9-1.1) All other labs normal. Assessment and Plan (1) Closed femur fracture: Status: Acute Opal Burciaga is a 85 year old female who presented to the emergency department yesterday afternoon after sustaining a fall out of bed. The patient has a question of cognitive impairment/dementia and therefore most the HPI was obtained from the ER notes. Patient has a past medical history significant for hypertension, hyperlipidemia, diabetes type 2, AFib on Eliquis in newly found chronic kidney disease stage 3. X-rays obtained in the emergency department of the left knee revealed a distal femur comminuted fracture. Orthopedics was consulted for further evaluation and treatment. The patient was admitted to the medicine service. I discussed the case with Dr. Lui and explained the extent of the injury to the patient and her order clerk Edita who reports that the patient is non ambulatory and has not been for the past three years after a diabetic coma for one week. She does not stand or pivot for transfers, she uses a lift. The patient should use knee immobilizer and followup with orthopedics outpatient for further evaluation and treatment. She should remain NWB. Ref[employer]ory Furnace [employer]er Edita: [phone] (2) Fall: Status: Acute Quality Stroke Does the patient have a stroke diagnosis?: No VTE Prior VTE?: No VTE Risk Level:: Medical - moderate - high VTE Device Contraindication: N/A - Device Ordered VTE Drug Contraindication: N/A - Med Ordered Procedures Date of Service Date of Service: 10/07/21
[2021-10-07] MEDS: Insulin Lispro 100 UNIT/ML 3 ML VIAL SUBCUT ×4 (08:02→20:55)
[2021-10-07] MEDS: SITagliptin Phosphate 100 MG TABLET PO (08:03)
[2021-10-07] MEDS: Metoprolol Tartrate 25 MG TABLET 75 MG PO ×2 (08:03→20:55)
[2021-10-07] MEDS: Escitalopram Oxalate 10 MG TABLET PO (08:03)
[2021-10-07] MEDS: lisinopriL 10 MG TABLET PO (08:03)
[2021-10-07] MEDS: 0.9 % Sodium Chloride Flush 3 ML SYRINGE IVFLUSH ×3 (08:03→20:56)
--- NOTE | 2021-10-07 08:04 | HO.PM.IMPN ---
Subjective Subjective Date of Service: 10/07/21 Interval History: knee fracture Review of Systems Has some knee pain otherwise, denies any chest pain or shortness of breath or abdominal pain or fever chills. Physical Exam Vital Signs: Vital Signs: Last Vital Signs Temp 99.0 F 10/07/21 07:18 Pulse 74 10/07/21 07:18 Resp 20 10/07/21 07:18 BP 141/62 H 10/07/21 07:18 Pulse Ox 96 10/07/21 07:18 BMI result Body Mass Index 31.6 Appearance: Alert.? Oriented X2.? not in distress.? cvs: rrr, [id number] . res: clear to auscultation ,no rhonchii or wheezing abd: no rebound or guarding ,nt, bs present. ext pulses present , no cyanosis left knee pain and mild swellin neuro: axo2 , nonfocal. Objective Data Active Medications Acetaminophen (Acetaminophen 325 Mg Tablet) 650 mg PO Q4H PRN PRN Reason: Fever Amlodipine Besylate (Amlodipine Besylate 5 Mg Tablet) 5 mg PO BEDTIME [facility]; Protocol Last Admin: 10/06/21 23:26 Dose: Not Given Documented by: SHARDA Non-Admin Reason: pt. lethargic upon [facility] [place] Bisacodyl (Bisacodyl 10 Mg Supp.Rect) 10 mg RI DAILY PRN PRN Reason: Constipation Escitalopram Oxalate (Escitalopram Oxalate 10 Mg Tablet) 10 mg PO DAILY [facility] Last Admin: 10/07/21 08:03 Dose: 10 mg Documented by: MACIE Glucose (Glucose Gel 15 Gm Gel..Gram.) 10 gm PO ONCE PRN PRN Reason: Hypoglycemia Lactated Ringer's (Lr) 1,000 mls @ 80 mls/hr IVCONT .[id number] [facility] Last Admin: 10/07/21 06:44 Dose: 80 mls/hr Documented by: SHARDA Insulin Glargine (Insulin Glargine,Hum.Rec.Anlog 100 Unit/Ml 10 Ml Vial) 21 unit SUBCUT DAILY [facility] Last Admin: 10/07/21 08:04 Dose: Not Given Documented by: MACIE Non-Admin Reason: NPO Insulin Human Lispro (Insulin Lispro 100 Unit/Ml 3 Ml Vial) 0 unit SUBCUT QIDACHS [facility]; Protocol Last Admin: 10/07/21 08:02 Dose: 8 unit Documented by: MACIE Lisinopril (Lisinopril 10 Mg Tablet) 10 mg PO DAILY [facility]; Protocol Last Admin: 10/07/21 08:03 Dose: 10 mg Documented by: MACIE Magnesium Hydroxide (Milk Of Magnesia 30 Ml Oral.Susp) 30 ml PO DAILY PRN PRN Reason: Constipation Metoprolol Tartrate (Metoprolol Tartrate 25 Mg Tablet) 75 mg PO BID [facility]; Protocol Last Admin: 10/07/21 08:03 Dose: 75 mg Documented by: MACIE Naloxone HCl (Naloxone Hcl Nasal 4 Mg [place]) 4 mg NOSTRILALT BID PRN PRN Reason: Drug Intoxication Symptoms Pharmacy Consult (Consult Rx Perform Med Rec) 1 each MISCELLANE ONCE PRN PRN Reason: Consult order Polyethylene Glycol (Polyethylene Glycol 3350 17 Gm Powd.Pack) 17 gm PO DAILY [facility] Last Admin: 10/07/21 08:04 Dose: Not Given Documented by: MACIE Non-Admin Reason: NPO Senna (Sennosides 8.6 Mg Tablet) 17.2 mg PO BEDTIME [facility] Last Admin: 10/06/21 23:26 Dose: Not Given Documented by: SHARDA Non-Admin Reason: pt. lethargic upon [facility] [place] Sitagliptin Phosphate (Sitagliptin Phosphate 100 Mg Tablet) 100 mg PO DAILY [facility] Last Admin: 10/07/21 08:03 Dose: 100 mg Documented by: MACIE Sodium Chloride (0.9 % Sodium Chloride Flush 3 Ml Syringe) 3 ml IVFLUSH QSHIFT [facility] Last Admin: 10/07/21 08:03 Dose: 3 ml Documented by: MACIE Labs CBC & Chem 7: 10/07/21 06:06 10/07/21 06:06 Labs: Laboratory Results - last 24 hr 10/06/21 10/06/21 10/06/21 16:09 16:09 16:09 MCV 91.0 MCH 29.5 MCHC 32.4 RDW 13.2 Plt Count 175 MPV 12.3 Immature Gran % (Auto) 0.6 H Neut % (Auto) 86.7 H Lymph % (Auto) 8.0 L [place] % (Auto) 4.1 Eos % (Auto) 0.3 Baso % (Auto) 0.3 Lymph # (Auto) 1.4 Nelson # (Auto) 0.7 Eos # (Auto) 0.1 Baso # (Auto) 0.1 Abs Immat Gran (auto) 0.10 H Absolute Neuts (auto) 14.9 H Absolute Nucleated RBC 0.000 Nucleated RBC % (auto) 0.0 PT 15.0 H INR 1.3 H APTT 32.5 Anion Gap 13 Estim Creat Clear Calc 54.9 Estimated GFR > 60 POC Glucose Random Glucose 311 H Calcium 11.0 H Phosphorus 2.2 L Total Bilirubin 0.5 AST 25 ALT 21 Alkaline Phosphatase 73 Total Protein 7.3 Albumin 3.4 L COVID-19 (SHANDA) COVID-19 [employer] Com 10/06/21 10/06/21 10/06/21 17:40 20:22 23:04 MCV MCH MCHC RDW Plt Count MPV Immature Gran % (Auto) Neut % (Auto) Lymph % (Auto) [place] % (Auto) Eos % (Auto) Baso % (Auto) Lymph # (Auto) Nelson # (Auto) Eos # (Auto) Baso # (Auto) Abs Immat Gran (auto) Absolute Neuts (auto) Absolute Nucleated RBC Nucleated RBC % (auto) PT INR APTT Anion Gap Estim Creat Clear Calc Estimated GFR POC Glucose 306 H 294 H Random Glucose Calcium Phosphorus Total Bilirubin AST ALT Alkaline Phosphatase Total Protein Albumin COVID-19 (SHANDA) Negative COVID-19 Clin Com See Note 10/07/21 10/07/21 10/07/21 06:06 06:06 07:10 MCV 91.6 MCH 29.3 MCHC 32.0 RDW 13.4 Plt Count 158 L MPV 13.5 H Immature Gran % (Auto) Neut % (Auto) Lymph % (Auto) [place] % (Auto) Eos % (Auto) Baso % (Auto) Lymph # (Auto) Nelson # (Auto) Eos # (Auto) Baso # (Auto) Abs Immat Gran (auto) Absolute Neuts (auto) Absolute Nucleated RBC 0.000 Nucleated RBC % (auto) 0.0 PT INR APTT Anion Gap 10 L Estim Creat Clear Calc 61.5 Estimated GFR > 60 POC Glucose 267 H Random Glucose 279 H Calcium 10.7 H Phosphorus Total Bilirubin AST ALT Alkaline Phosphatase Total Protein Albumin COVID-19 (SHANDA) COVID-19 Clin Com Assessment and Plan (1) Hypercalcemia: Status: Acute (2) Closed femur fracture: Status: Acute Plan 85-year-old female with multiple comorbidities including hypertension, dyslipidemia, diabetes, PAF:? Came to the hospital after mechanical fall has right knee fracture. 1. Right knee fracture: NPO past midnight, hold Eliquis, surgery evaluation Incentive spirometry, Chest physiotherapy, pain control,base bowel regimen. 2. Hypertension: Hold lisinopril in anticipation of surgery Continue amlodipine, metoprolol 3. PAF: seems sinus moniter on tele continue bb,hold eliquis as above. 4. dm:? Fingerstick with sliding scale coverage will adjust Lantus if no surgery plan today and start dm diet 5. Cognitive impairment or dementia unclear etiology:long standing years As per the production scheduler she is at her baseline Supportive care. 6.Leukocytosis:? Currently patient denies any new symptoms cough nausea vomiting abdominal pain or urinary complaint or shortness of breath Chest x-ray negative UA ordered Will continue to monitor, leukocytosis probably reactive since had patient has fracture. 7.Hypercalcemia:? As per the production scheduler patient has hyperparathyroidism She also has CKD stage 3. Nephro evaluation, added PTH and phosphate level,vitamin D levels . DVT prophylaxis:scd need for inpatient: knee fx , hypercalcemia Quality Stroke Does the patient have a stroke diagnosis?: No VTE Prior VTE?: No VTE Risk Level:: Medical - moderate - high VTE Device Contraindication: N/A - Device Ordered VTE Drug Contraindication: N/A - Med Ordered
[2021-10-07] MEDS: Acetaminophen 325 MG TABLET 650 MG PO ×2 (08:19→15:02)
--- NOTE | 2021-10-07 09:58 | PM.CNNEP ---
History of Present Illness Reason for Consult Consult date: 10/07/21 Reason for consult: Hypercalcemia Requesting physician: Vale Wang Chief Complaint Chief complaint: Knee Fracture History of Present Illness Narrative: 85-year-old female with past medical history of CKD 3, hyperparathyroidism, hypertension, cognitive impairment, dyslipidemia, T2DM, and PAF who presented to [facility] [place] following mechanical fall. Found to have right knee fracture via imaging and scheduled for surgical repair today. HCP states the patient was given dx of hyperparathyroidism in past. Found to have elevated calcium level on initial lab assessment. Nephrology consulted for additional input and evaluation. ROS otherwise negative. [facility] Past Medical History Medical History Cognitive communication deficit COVID-19 DM (diabetes mellitus) Dysphagia Hyperlipemia Hyperparathyroidism Major depression Paroxysmal A-fib SVT (supraventricular tachycardia) Social History Social History Housing: Assisted Living Facility Unable to assess alcohol history related to: Unable to respond Patient Tobacco Use Status: Tobacco use Unknown Advance Directives Date on File: 10/06/21 Meds Allergies Allergy/AdvReac Type Severity Reaction Status Date / Time No Known Allergies Allergy Mild NKA Unverified 03/04/20 14:52 Active Medications: Current Medications Acetaminophen (Acetaminophen 325 Mg Tablet) 650 mg PO Q4H PRN PRN Reason: Fever Last Admin: 10/07/21 08:19 Dose: 650 mg Documented by: Amlodipine Besylate (Amlodipine Besylate 5 Mg Tablet) 5 mg PO BEDTIME [facility]; Protocol Last Admin: 10/06/21 23:26 Dose: Not Given Documented by: Bisacodyl (Bisacodyl 10 Mg Supp.Rect) 10 mg [place] DAILY PRN PRN Reason: Constipation Escitalopram Oxalate (Escitalopram Oxalate 10 Mg Tablet) 10 mg PO DAILY [facility] Last Admin: 10/07/21 08:03 Dose: 10 mg Documented by: Glucose (Glucose Gel 15 Gm Gel..Gram.) 10 gm PO ONCE PRN PRN Reason: Hypoglycemia Lactated Ringer's (Lr) 1,000 mls @ 80 mls/hr IVCONT .[id number] [facility] Last Admin: 10/07/21 06:44 Dose: 80 mls/hr Documented by: Insulin Glargine (Insulin Glargine,Hum.Rec.Anlog 100 Unit/Ml 10 Ml Vial) 21 unit SUBCUT DAILY [facility] Last Admin: 10/07/21 08:04 Dose: Not Given Documented by: Insulin Human Lispro (Insulin Lispro 100 Unit/Ml 3 Ml Vial) 0 unit SUBCUT QIDACHS [facility]; Protocol Last Admin: 10/07/21 08:02 Dose: 8 unit Documented by: Lisinopril (Lisinopril 10 Mg Tablet) 10 mg PO DAILY [facility]; Protocol Last Admin: 10/07/21 08:03 Dose: 10 mg Documented by: Magnesium Hydroxide (Milk Of Magnesia 30 Ml Oral.Susp) 30 ml PO DAILY PRN PRN Reason: Constipation Metoprolol Tartrate (Metoprolol Tartrate 25 Mg Tablet) 75 mg PO BID [facility]; Protocol Last Admin: 10/07/21 08:03 Dose: 75 mg Documented by: Naloxone HCl (Naloxone Hcl Nasal 4 Mg [place]) 4 mg NOSTRILALT BID PRN PRN Reason: Drug Intoxication Symptoms Pharmacy Consult (Consult Rx Perform Med Rec) 1 each MISCELLANE ONCE PRN PRN Reason: Consult order Polyethylene Glycol (Polyethylene Glycol 3350 17 Gm Powd.Pack) 17 gm PO DAILY [facility] Last Admin: 10/07/21 08:04 Dose: Not Given Documented by: Senna (Sennosides 8.6 Mg Tablet) 17.2 mg PO BEDTIME [facility] Last Admin: 10/06/21 23:26 Dose: Not Given Documented by: Sitagliptin Phosphate (Sitagliptin Phosphate 100 Mg Tablet) 100 mg PO DAILY [facility] Last Admin: 10/07/21 08:03 Dose: 100 mg Documented by: Sodium Chloride (0.9 % Sodium Chloride Flush 3 Ml Syringe) 3 ml IVFLUSH QSHIFT [facility] Last Admin: 10/07/21 08:03 Dose: 3 ml Documented by: Home Medications Medication Instructions Recorded Confirmed Last Taken Type acetaminophen 325 mg tablet 650 mg PO Q4H PRN 10/06/21 10/06/21 Unknown History amlodipine 5 mg tablet 1 tab PO BEDTIME 10/06/21 10/06/21 Unknown History apixaban 5 mg tablet (Eliquis) 1 tab PO BID 10/06/21 10/06/21 Unknown History bisacodyl 10 mg rectal suppository 10 mg ND DAILY PRN 10/06/21 10/06/21 Unknown History citalopram 20 mg tablet 1 tab PO DAILY 10/06/21 10/06/21 Unknown History dextrose 40 % oral gel (Glucose 10 g PO ONCE PRN 10/06/21 10/06/21 Unknown History Gel) glucagon HCl 1 mg solution for 1 mg SUBCUT ONCE PRN 10/06/21 10/06/21 Unknown History injection (Glucagon (HCl) Emergency Kit) insulin aspart U-100 100 unit/mL See Protocol SUBCUT TIDAC 10/06/21 10/06/21 Unknown History subcutaneous solution (Novolog U-100 Insulin aspart) insulin detemir U-100 100 unit/mL 30 unit SUBCUT DAILY 10/06/21 10/06/21 Unknown History subcutaneous solution (Levemir U-100 Insulin) insulin detemir U-100 100 unit/mL 38 unit SUBCUT BEDTIME 10/06/21 10/06/21 Unknown History subcutaneous solution (Levemir U-100 Insulin) lisinopril 10 mg tablet 1 tab PO DAILY 10/06/21 10/06/21 Unknown History magnesium hydroxide 400 mg/5 mL 30 ml PO DAILY PRN 10/06/21 10/06/21 Unknown History oral suspension (Milk of Magnesia) metoprolol tartrate 25 mg tablet 75 mg PO BID 10/06/21 10/06/21 Unknown History naloxone 4 mg/actuation nasal spray 4 mg INTRANASAL BID PRN 10/06/21 10/06/21 Unknown History sennosides 8.6 mg tablet (senna) 17.2 mg PO BEDTIME 10/06/21 10/06/21 Unknown History sitagliptin 100 mg tablet (Januvia) 1 tab PO DAILY 10/06/21 10/06/21 Unknown History Physical Exam Vital Signs: Last Vital Signs Temp 99.0 F 10/07/21 07:18 Pulse 74 10/07/21 07:18 Resp 20 10/07/21 07:18 BP 141/62 H 10/07/21 07:18 Pulse Ox 96 10/07/21 07:18 BMI result Body Mass Index 31.6 Const General: comfortable and no acute distress HEENT Head: Yes normocephalic and Yes atraumatic Resp Auscultation: clear to auscultation bilaterally Cardio Jugular venous distension: no JVD Rate: regular rate Rhythm: regular rhythm Heart sounds: S1 normal heart sound present and S2 normal heart sound present GI Auscultation: normal bowel sounds Neuro General: no focal motor deficits Extrem General: Yes no clubbing, cyanosis or edema Results Lab Results Result Diagrams: 10/07/21 06:06 10/07/21 06:06 Lab results: Chemistry 10/06/21 10/07/21 16:09 06:06 Sodium 136 136 Potassium 4.6 4.6 Carbon Dioxide 26 27 BUN 13 15 Creatinine 0.86 0.79 Calcium 11.0 H 10.7 H Phosphorus 2.2 L Hematology 10/06/21 10/07/21 16:09 06:06 WBC 17.2 H 12.6 H Hgb 12.5 10.8 L Plt Count 175 158 L Assessment and Plan (1) Hypercalcemia: Status: Acute Plan #CKD 2: BL S-Cr ~ 0.8 mg/dL, LIkely ckd from age related changes, hypertension, and longstanding DM. Appears stable at this time with no evidence of PORFIRIO. 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 Noted hypercalcemia on presentation (cCa=11.5). Add PTH, phosphorus level (low), spep/upep/FLC, vitD 25, vitD 1,25 Maintain urinary flow. Suggest isotonic ivf's at maintenance rate. Procedures Date of Service Date of Service: 10/07/21
--- NOTE | 2021-10-07 10:23 | MHC.CM.PN ---
pt from [facility] she will return when dcd
[2021-10-07 11:05] LABS: Glucose, Whole Blood 241 mg/dL (60-115)
[2021-10-07 11:06] LABS: Iron 74 mcg/dL (30-160); Percent Iron Saturation 28 % (15-50); Total Iron Binding Capacity 265 mcg/dL (228-428); Unsaturated Iron Binding 191 ug/dL
[2021-10-07 11:09] VITALS: BP 103/57; PULSE 61; RESP 20; TEMP 37; O2SAT 97
--- NOTE | 2021-10-07 12:04 | MHC.CLN ---
NUTRITION CONSULT DUE TO LEANNE=13. NO PRESSURE AREAS NOTED. DIET=DIABETIC 1800 KCAL-APPROPRIATE. NO ADDITIONAL NUTRITION INTERVENTIONS AT THIS TIME.
[2021-10-07 12:26] LABS: Calcium (PTHI) 10.7 mg/dL (8.6-10.4); PTHI 149 pg/mL (16-77)
[2021-10-07 14:52] VITALS: BP 143/67; PULSE 67; RESP 14; TEMP 37.1; O2SAT 97
[2021-10-07] MEDS: Apixaban 5 MG TABLET PO ×2 (15:02→20:55)
[2021-10-07 16:06] LABS: Glucose, Whole Blood 189 mg/dL (60-115)
[2021-10-07 18:58] VITALS: BP 140/59; PULSE 72; RESP 17; TEMP 36.2; O2SAT 97
[2021-10-07 19:41] LABS: Glucose, Whole Blood 239 mg/dL (60-115)
[2021-10-07] MEDS: Insulin Glargine,Hum.rec.anlog 100 UNIT/ML 10 ML VIAL 15 UNIT SUBCUT (20:55)
[2021-10-07] MEDS: Sennosides 8.6 MG TABLET 17.2 MG PO (20:55)
[2021-10-07] MEDS: amLODIPine Besylate 5 MG TABLET PO (20:55)
[2021-10-07 23:11] VITALS: BP 161/55; PULSE 74; RESP 15; TEMP 37.4; O2SAT 97
[2021-10-08 03:17] VITALS: BP 150/71; PULSE 75; RESP 15; TEMP 37; O2SAT 97
[2021-10-08 06:36] LABS: Anion Gap 8 (12-20); Blood Urea Nitrogen 13 mg/dL (9-16); Calcium 10.7 mg/dL (8.4-10.2); Carbon Dioxide 28 mmol/L (22-29); Chloride 104 mmol/L (96-108); Estimated Glomerular Filt Rate > 60; Glucose Random 260 mg/dL (60-115); Potassium 4.3 mmol/L (3.3-5.1); Sodium 136 mmol/L (135-145)
[2021-10-08 07:17] VITALS: BP 141/52; PULSE 71; RESP 19; TEMP 36.7; O2SAT 98
[2021-10-08 07:31] LABS: Glucose, Whole Blood 250 mg/dL (60-115)
[2021-10-08] MEDS: Insulin Lispro 100 UNIT/ML 3 ML VIAL SUBCUT ×2 (07:42→12:30)
[2021-10-08] MEDS: Acetaminophen 325 MG TABLET 650 MG PO (07:43)
[2021-10-08] MEDS: Escitalopram Oxalate 10 MG TABLET PO (07:44)
[2021-10-08] MEDS: 0.9 % Sodium Chloride Flush 3 ML SYRINGE IVFLUSH (07:44)
--- NOTE | 2021-10-08 07:52 | P.PNIM_ITS ---
Subjective Subjective Date of Service: 10/08/21 Interval History: knee fracture Physical Exam Vital Signs: Vital Signs: Last Vital Signs Temp 98.1 F 10/08/21 07:17 Pulse 71 10/08/21 07:17 Resp 19 10/08/21 07:17 BP 141/52 H 10/08/21 07:17 Pulse Ox 98 10/08/21 07:17 BMI result Body Mass Index 31.6 Objective Data Active Medications Acetaminophen (Acetaminophen 325 Mg Tablet) 650 mg PO Q4H PRN PRN Reason: Fever Last Admin: 10/08/21 07:43 Dose: 650 mg Documented by: MACIE Amlodipine Besylate (Amlodipine Besylate 5 Mg Tablet) 5 mg PO BEDTIME [facility]; Protocol Last Admin: 10/07/21 20:55 Dose: 5 mg Documented by: ARLEY Apixaban (Apixaban 5 Mg Tablet) 5 mg PO BID [facility] Last Admin: 10/07/21 20:55 Dose: 5 mg Documented by: ARLEY Bisacodyl (Bisacodyl 10 Mg Supp.Rect) 10 mg PA DAILY PRN PRN Reason: Constipation Escitalopram Oxalate (Escitalopram Oxalate 10 Mg Tablet) 10 mg PO DAILY [facility] Last Admin: 10/08/21 07:44 Dose: 10 mg Documented by: MACIE Glucose (Glucose Gel 15 Gm Gel..Gram.) 10 gm PO ONCE PRN PRN Reason: Hypoglycemia Insulin Glargine (Insulin Glargine,Hum.Rec.Anlog 100 Unit/Ml 10 Ml Vial) 21 unit SUBCUT DAILY [facility] Last Admin: 10/08/21 07:34 Dose: Not Given Documented by: MACIE Non-Admin Reason: NPO Insulin Glargine (Insulin Glargine,Hum.Rec.Anlog 100 Unit/Ml 10 Ml Vial) 15 unit SUBCUT BEDTIME [facility] Last Admin: 10/07/21 20:55 Dose: 15 unit Documented by: ARLEY Insulin Human Lispro (Insulin Lispro 100 Unit/Ml 3 Ml Vial) 0 unit SUBCUT QIDACHS [facility]; Protocol Last Admin: 10/08/21 07:42 Dose: 6 unit Documented by: MACIE Lisinopril (Lisinopril 10 Mg Tablet) 10 mg PO DAILY [facility]; Protocol Last Admin: 10/07/21 08:03 Dose: 10 mg Documented by: MACIE Magnesium Hydroxide (Milk Of Magnesia 30 Ml Oral.Susp) 30 ml PO DAILY PRN PRN Reason: Constipation Metoprolol Tartrate (Metoprolol Tartrate 25 Mg Tablet) 75 mg PO BID [facility]; Protocol Last Admin: 10/07/21 20:55 Dose: 75 mg Documented by: ARLEY Naloxone HCl (Naloxone Hcl Nasal 4 Mg [place]) 4 mg NOSTRILALT BID PRN PRN Reason: Drug Intoxication Symptoms Pharmacy Consult (Consult Rx Perform Med Rec) 1 each MISCELLANE ONCE PRN PRN Reason: Consult order Polyethylene Glycol (Polyethylene Glycol 3350 17 Gm Powd.Pack) 17 gm PO DAILY [facility] Last Admin: 10/07/21 08:04 Dose: Not Given Documented by: MACIE Non-Admin Reason: NPO Senna (Sennosides 8.6 Mg Tablet) 17.2 mg PO BEDTIME [facility] Last Admin: 10/07/21 20:55 Dose: 17.2 mg Documented by: ARLEY Sitagliptin Phosphate (Sitagliptin Phosphate 100 Mg Tablet) 100 mg PO DAILY [facility] Last Admin: 10/07/21 08:03 Dose: 100 mg Documented by: MACIE Sodium Chloride (0.9 % Sodium Chloride Flush 3 Ml Syringe) 3 ml IVFLUSH QSHIFT [facility] Last Admin: 10/08/21 07:44 Dose: 3 ml Documented by: MACIE Labs CBC & Chem 7: 10/07/21 06:06 10/08/21 05:54 Labs: Laboratory Results - last 24 hr 10/06/21 10/07/21 10/07/21 16:09 06:06 11:00 Anion Gap Estim Creat Clear Calc Estimated GFR POC Glucose 241 H Random Glucose Calcium Iron 74 TIBC 265 % Saturation 28 Unsat Iron Binding 191 PTH Intact 149 H Calcium (PTH Intact) 10.7 H 10/07/21 10/07/21 10/08/21 16:02 19:33 05:54 Anion Gap 8 L Estim Creat Clear Calc 64.0 Estimated GFR > 60 POC Glucose 189 H 239 H Random Glucose 260 H Calcium 10.7 H Iron TIBC % Saturation Unsat Iron Binding PTH Intact Calcium (PTH Intact) 10/08/21 07:28 Anion Gap Estim Creat Clear Calc Estimated GFR POC Glucose 250 H Random Glucose Calcium Iron TIBC % Saturation Unsat Iron Binding PTH Intact Calcium (PTH Intact) Assessment and Plan Plan 85-year-old female with multiple comorbidities including hypertension, dyslipidemia, diabetes, PAF:? Came to the hospital after mechanical fall has right knee fracture. 1. Right knee fracture: NPO past midnight, hold Eliquis, surgery evaluation Incentive spirometry, Chest physiotherapy, pain control,base bowel regimen. 2. Hypertension: Hold lisinopril in anticipation of surgery Continue amlodipine, metoprolol 3. PAF: seems sinus moniter on tele continue bb,hold eliquis as above. 4. dm:? Fingerstick with sliding scale coverage will adjust? Lantus if no surgery plan today and start dm diet 5. Cognitive impairment or dementia unclear etiology:long standing years As per the fitness technician she is at her baseline Supportive care. 6.Leukocytosis:? Currently patient denies any new symptoms cough nausea vomiting abdominal pain or urinary complaint or shortness of breath Chest x-ray negative UA ordered Will continue to monitor, leukocytosis probably reactive since had patient has fracture. 7.Hypercalcemia:? As per the fitness technician patient has hyperparathyroidism She also has CKD stage 2. Nephro evaluation, added PTH and phosphate level,vitamin D levels . DVT prophylaxis:scd need for inpatient: knee fx , hypercalcemia Quality Stroke Does the patient have a stroke diagnosis?: No VTE Prior VTE?: No VTE Risk Level:: Medical - moderate - high VTE Device Contraindication: N/A - Device Ordered VTE Drug Contraindication: N/A - Med Ordered
--- NOTE | 2021-10-08 10:49 | MHC.CM.PN ---
Per MD, Patient will be medically cleared for dc to SNF/STR today. Patient will return to [place] [facility] today at 2PM, via [facility]. Last IMM addressed yesterday.
[2021-10-08] MEDS: Lidocaine 4 % Patch ADH..PATCH 1 PATCH TRANSDERMA (10:56)
[2021-10-08] MEDS: lisinopriL 10 MG TABLET PO (10:57)
[2021-10-08] MEDS: polyethylene glycoL 3350 17 GM POWD.PACK PO (10:57)
[2021-10-08] MEDS: SITagliptin Phosphate 100 MG TABLET PO (10:57)
[2021-10-08] MEDS: Metoprolol Tartrate 25 MG TABLET 75 MG PO (10:57)
[2021-10-08] MEDS: Apixaban 5 MG TABLET PO (10:58)
[2021-10-08 11:00] VITALS: BP 131/51; PULSE 63; RESP 18; TEMP 36.8; O2SAT 98
[2021-10-08 11:05] LABS: Glucose, Whole Blood 209 mg/dL (60-115)
--- NOTE | 2021-10-08 11:21 | PM.DS ---
DS: Providers Provider Date of Service: 10/08/21 Date of admission: 10/06/21 17:56 Primary care physician: Mai Bower MD Consults: 10/06/21 17:51 Consult to Nephrology Routine Consulting Provider: Adria Padilla Reason for consultation: ckd/hypercalcemia /hx of hyperparathyroidism Has provider been notified: No 10/06/21 18:50 Consult to Orthopedics Routine Consulting [place] [facility] [place] [facility] Reason for consultation: left knee fracture Has provider been notified: No DS: Diagnosis Discharge Diagnosis (1) Hypercalcemia: Status: Acute (2) Closed femur fracture: Status: Acute DS: Summary Hospital Course Hospital Course: 85-year-old female past medical history of hypertension, hyperlipidemia, diabetes, ch afib, also history of possible cognitive impairment -patient came to the hospital status post fall, It seems that the patient is mostly bedbound 2-3 years and she was trying to get out of the bed today and then she fell down and afterwards started having knee pain and was sent to the emergency room for evaluation for that. Patient uses a wheelchair barely weekly. Spoke to the recreation counselor and patient:? Denied any palpitation or chest pain or shortness of breath or cough or any nausea or vomiting or fever or chills or any urinary complaints or abdominal pain or fever or chills. Patient has knee pain. HPI is limited because patient is poor historian. hospital course:Patient came to the hospital status post fall has left knee fracture -seen by surgery and discussed with Hcp-currently does not want surgery and patient was placed on knee immobilization, patient need follow-up outpatient knee with Ortho. Leukocytosis possibly reactive, chest x-ray negative patient denies any urinary complaints, WBC trending down. Monitor CBC outpatient in 1 week. Hypercalcemia: Patient has history of hyperparathyroidism in the past. Calcium levels are hovering around 10.7 range which is better than before. Hypercalcemia workup pending which needs to be followed up outpatient with Nephrology. Please consider outpatient endocrinology evaluation as per PCP and Monitor BMP in 1 week outpatient. Time Spent with Patient Time attestation: Total time spent providing and/or coordinating discharge services: Discharge coordination time: Greater than 30 minutes Quality: Safe Use of Opioids Does Pt have an Active Cancer Diagnosis on the Problem List?: No Quality: Stroke Does the patient have a stroke diagnosis?: No Physical Exam Vital Signs: Vital Signs: Last Vital Signs Temp 98.3 F 10/08/21 11:00 Pulse 63 10/08/21 11:00 Resp 18 10/08/21 11:00 BP 131/51 L 10/08/21 11:00 Pulse Ox 98 10/08/21 11:00 BMI result Body Mass Index 31.6 Appearance: Alert.? Oriented X2.? not in distress.? Eyes: Pupils equal, round and reactive to light.? Sclera nonicteric.? ENT: Pharynx normal.? Moist mucous membranes. cvs: rrr, [id number]. res: clear to auscultation ,no rhonchii or wheezing abd: no rebound or guarding ,nt, bs present. ext pulses present , no cyanosis left knee pain seems improving neuro: axo2 , nonfocal. DS: Data Data Completed and Pending Labs on day of discharge: Laboratory Results - last 24 hr 10/06/21 10/07/21 10/07/21 16:09 16:02 19:33 Sodium Potassium Chloride Carbon Dioxide Anion Gap BUN Creatinine Estim Creat Clear Calc Estimated GFR POC Glucose 189 H 239 H Random Glucose Calcium PTH Intact 149 H Calcium (PTH Intact) 10.7 H 10/08/21 10/08/21 10/08/21 05:54 07:28 11:01 Sodium 136 Potassium 4.3 Chloride 104 Carbon Dioxide 28 Anion Gap 8 L BUN 13 Creatinine 0.76 Estim Creat Clear Calc 64.0 Estimated GFR > 60 POC Glucose 250 H 209 H Random Glucose 260 H Calcium 10.7 H PTH Intact Calcium (PTH Intact) Additional Comments Additional comments: XR/XR chest 1V IMPRESSION: Unremarkable examination. XR/XR femur LT 2V IMPRESSION: Once again comminuted fracture the distal femur is seen with distraction fracture sites about the region. Cannot exclude communication with the articulation. CT/CT knee LT wo con IMPRESSION: Comminuted distal femoral metadiaphyseal fracture with nondisplaced intra-articular extension into the trochlea. ? Large lipohemarthrosis. ? Moderate tricompartmental osteoarthritis. Discharge Plan Discharge Patient Disposition: [facility] Discharge Diagnosis: knee fracture s/p fall Referrals: [facility] [place] [Outside] - 1 Week Mai Bower MD [Primary Care Provider] - 1 Week Lesly Ingram PA-C [Physician Senior Manager Quality Assurance] - 2 Weeks (follow up outpatiently) Adria Padilla MD [Physician] - 1 Week (follow up outpatiently) Discharge Medications: New lidocaine [Lidocaine Pain Relief] 4 % Adhesive Patch,Medicated 1 patch transdermal DAILY Qty: 10 0RF Protocol: Apply to: Apply to: knee pain area tramadol 50 mg tablet 25 mg PO BID PRN (Reason: pain) Qty: 6 0RF Continued sennosides [senna] 8.6 mg Tablet 17.2 mg PO BEDTIME 0RF acetaminophen 325 mg Tablet 650 mg PO Q4H PRN (Reason: Fever) 0RF dextrose [Glucose Gel] 40 % Gel 10 g PO ONCE PRN (Reason: Hypoglycemia) 0RF Rx Instructions: glucose < 50 amlodipine 5 mg tablet 1 tab PO BEDTIME 0RF citalopram 20 mg tablet 1 tab PO DAILY 0RF magnesium hydroxide [Milk of Magnesia] 400 mg/5 mL Suspension 30 ml PO DAILY PRN (Reason: Constipation) 0RF insulin aspart U-100 [Novolog U-100 Insulin aspart] 100 unit/mL solution See Protocol sliding scale dose subcut TIDAC 0RF Protocol: Insulin Correction Scale Less than or equal to 110 ---- Give (units): 0 111 to 150 Give (units): 2 151 to 200 Give (units): 4 201 to 250 Give (units): 6 251 to 300 Give (units): 8 301 to 350 Give (units): 10 Greater than 350 Give (units): 12 Call MD if Blood Glucose > : 400 Rx Instructions: 100-150 = 2 units 151-200 = 4 units 201-250 = 6 units 251-300 = 8 units 301-349 = 10 units 350-400 = 12 units bisacodyl 10 mg Suppository 10 mg AK DAILY PRN (Reason: Constipation) 0RF lisinopril 10 mg tablet 1 tab PO DAILY 0RF metoprolol tartrate 25 mg Tablet 75 mg PO BID 0RF Levemir U-100 Insulin 100 unit/mL solution 30 unit subcut DAILY 0RF Levemir U-100 Insulin 100 unit/mL solution 38 unit subcut BEDTIME 0RF Januvia 100 mg tablet 1 tab PO DAILY 0RF Eliquis 5 mg tablet 1 tab PO BID 0RF naloxone 4 mg/actuation [place],Non-Aerosol 4 mg INTRANASAL BID PRN (Reason: Drug Intoxication Symptoms) 0RF Rx Instructions: spray 1 dose into ONE nostril; alternate nostrils w each dose until help arrives Glucagon (HCl) Emergency Kit 1 mg Recon Soln 1 mg SUBCUT ONCE PRN (Reason: Hypoglycemia) 0RF Rx Instructions: if glucose < 60 Discharge Orders: Discharge Order (Routine); Ordered 10/08/21 Ordered By: Vale Wang Diet: advance to usual diet Activity on Discharge: As tolerated Stand Alone Forms: Patient Portal Discharge page Print Language: Ukrainian Other Ambulatory Orders: Basic Metabolic Panel (Routine) Timeframe: 1 Week Facility: [facility] - Location: Laboratory Ordered By: Vale Wang Complete Blood Count no Diff (Routine) Timeframe: 1 Week Facility: [facility] - Location: Laboratory Ordered By: Vale Wang Activity Restrictions/Additional Instructions: NWB x8-12 weeks Immobilizer for comfort and protection during transfers Follow up with orthopedics in 2 weeks Care Plan Goals: Patient came to the hospital status post fall has left knee fracture -seen by surgery and discussed with Hcp-currently does not want surgery and patient was placed on knee immobilization, patient need follow-up outpatient knee with Ortho. Hypercalcemia: Patient has history of hyperparathyroidism in the past. Calcium levels are hovering around 10.7 range which is better than before. Hypercalcemia workup includingspep/upep/FLC, vitD 25, vitD 1,25 pending which needs to be followed up outpatient with Nephrology. Please consider outpatient endocrinology evaluation as per PCP and Monitor BMP in 1 week outpatient. Health Concerns: As above. Plan of Treatment: As above. Assessment: As above.
[2021-10-08] MEDS: traMADoL HCL 50 MG TABLET 25 MG PO (12:35)
[2021-10-08] MEDS: Acetaminophen 325 MG TABLET 975 MG PO (13:34)
[2021-10-10 07:32] LABS: Folate 10.7 ng/mL (> or = 4.0); Vitamin B12 448 pg/mL (200-900)
[2021-10-11 00:26] LABS: Kappa Light Chain, Free Serum 68.6 mg/L (3.3-19.4); Kappa/Lambda Lt Ch Free Ratio 1.99 (0.26-1.65); Lambda Light Chain, Free Serum 34.5 mg/L (5.7-26.3)
[2021-10-11 21:16] LABS: Prot Elec - Albumin 3.1 g/dL (3.8-4.8); Prot Elec - Alpha1 0.3 g/dL (0.2-0.3); Prot Elec - Alpha2 0.6 g/dL (0.5-0.9); Prot Elec - Beta 1 0.5 g/dL (0.4-0.6); Prot Elec - Beta 2 0.5 g/dL (0.2-0.5); Prot Elec - Gamma 1.4 g/dL (0.8-1.7); Prot Elec - Total Protein 6.4 g/dL (6.1-8.1)
[2021-10-12 01:16] LABS: VITAMIN D (1,25 OH) D3 33 pg/mL; Vit D (1,25-Dihydroxy) Total 33 pg/mL (18-72); Vitamin D (1,25 OH) D2 <8 pg/mL
== END 2021-10-08 14:30 | disposition skilled nursing facility (03) | DRG 644 ==
LOC: HO.ED 17:22 → HO.EDOVER 18:04 → HO.IMC 19:00
PROVIDERS: Internal Medicine Nephrology; Physician Assistant Medical; Admitting Provider Internal Medicine; Emergency Provider Internal Medicine; PCP Internal Medicine; Visit Provider Internal Medicine
DX: E21.3 Hyperparathyroidism, unspecified (principal); S72.492A Other fracture of lower end of left femur, initial encounter for closed fracture; M97.02XA Periprosthetic fracture around internal prosthetic left hip joint, initial encounter; W06.XXXA Fall from bed, initial encounter; Y92.122 Bedroom in nursing home as the place of occurrence of the external cause; E78.5 Hyperlipidemia, unspecified; Z66 Do not resuscitate; F03.90 Unspecified dementia, unspecified severity, without behavioral disturbance, psychotic disturbance, mood disturbance, and anxiety; I12.9 Hypertensive chronic kidney disease with stage 1 through stage 4 chronic kidney disease, or unspecified chronic kidney disease; N25.0 Renal osteodystrophy; N18.30 Chronic kidney disease, stage 3 unspecified; E11.22 Type 2 diabetes mellitus with diabetic chronic kidney disease; I48.0 Paroxysmal atrial fibrillation; Z20.822 Contact with and (suspected) exposure to COVID-19; Z79.4 Long term (current) use of insulin; Z79.01 Long term (current) use of anticoagulants; Z79.899 Other long term (current) drug therapy
CPT/HCPCS: 36415; 70450; 71045; 72125; 73502; 73552; 73560; 73700; 80048; 80053; 82607; 82652; 82746; 82947; 83521; 83540; 83970; 84100; 84165; 85025; 85027; 85610; 85730; 87635; 93005; 96374; 96375; 99285; J2270; J2405

== ENCOUNTER 2021-10-28 06:02 | Outpatient (REF) | payer MEDICARE, OTHER, SELFPAY ==
--- NOTE | ~2021-10-28 | XR_ITS ---
EXAMINATION: XR FEMUR, LEFT CLINICAL INFORMATION: Fracture COMPARISON: Previous x-ray September 2021 TECHNIQUE: AP and lateral views of the left femur were obtained. FINDINGS: There is a comminuted displaced fracture of the distal femoral shaft. This appears unchanged in alignment. Fracture lines are still seen. No appreciable bony callus formation is seen. The bones are osteopenic. 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 There is soft tissue arterial calcification. XR/XR femur LT 2V IMPRESSION: No change in comminuted displaced fracture of the left distal femoral shaft.
== END 2021-10-28 06:03 | disposition home or self-care (01) ==
LOC: HO.HOSX 06:02
PROVIDERS: Visit Provider Physician Assistant
DX: S72.352A Displaced comminuted fracture of shaft of left femur, initial encounter for closed fracture (principal); W06.XXXA Fall from bed, initial encounter; Y93.9 Activity, unspecified; Y92.122 Bedroom in nursing home as the place of occurrence of the external cause; Y99.8 Other external cause status; R41.841 Cognitive communication deficit; R13.10 Dysphagia, unspecified; E11.9 Type 2 diabetes mellitus without complications; E78.5 Hyperlipidemia, unspecified; I48.0 Paroxysmal atrial fibrillation; M85.80 Other specified disorders of bone density and structure, unspecified site; Z96.642 Presence of left artificial hip joint
CPT/HCPCS: 73552; 99212

== ENCOUNTER 2024-04-24 15:05 | Emergency (ER) | payer MEDICARE, OTHER, SELFPAY ==
--- NOTE | ~2024-04-24 | CT_ITS ---
EXAMINATION: CT HEAD WITHOUT CONTRAST CLINICAL INFORMATION: Fall, on anticoagulants. COMPARISON: CT head 10/06/2021. TECHNIQUE: Contiguous axial imaging was performed from the skull base to vertex without intravenous administration of contrast. This CT examination was performed using dose optimization techniques as appropriate, variously including the following: *Automated exposure control *Adjustment of mA and/or kV according to patient size (this includes techniques or standardized protocols for targeted exams where dose is matched to indication/reason for exam; i.e. extremities or head) *Use of iterative reconstruction technique DLP: 760 mGy-cm FINDINGS: Few chronic bilateral lacunar infarcts. There is no evidence of acute intracranial hemorrhage or edematous territorial infarction. Confluent hypoattenuation in the periventricular and deep white matter. Bai-white matter differentiation is preserved. Proportional prominence of the ventricles and sulcal spaces. No evidence for obstructive hydrocephalus. No abnormal mass effect or midline shift. No extra-axial fluid collections. No acute soft tissue or osseous abnormalities. Small air-fluid level with mucous secretions in the left sphenoidal sinus. Otherwise paranasal sinuses, mastoids and middle ear cavities are clear. CT/CT head/brain wo IV con IMPRESSION: 1. No evidence of acute intracranial hemorrhage or edematous territorial infarction. 2. 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 3. Chronic bilateral lacunar infarcts. 4. Small air-fluid level with mucous secretions in the left sphenoidal sinus. Correlate clinically for acute sinusitis. Electronically signed by: Mohini Holguin MD 04/24/2024 06:18 PM [facility] [place]
[2024-04-24 15:13] VITALS: BP 116/58; PULSE 82; O2SAT 97
[2024-04-24 15:20] VITALS: BP 149/66; PULSE 61; RESP 16; O2SAT 95; BMI 31.6
--- NOTE | 2024-04-24 15:27 | ECG_ITS ---
Test Reason : ams Blood Pressure : / mmHG Vent. Rate : 058 BPM Atrial Rate : 058 BPM P-R Int : 168 ms QRS Dur : 092 ms QT Int : 424 ms P-R-T Axes : 000 027 107 degrees QTc Int : [address] & T wave abnormality, consider lateral ischemia Abnormal ECG When compared with ECG of 06-OCT-2021 17:05, No significant change was found Referred By: May Duncan Electronically Signed By:ELA FINCH MD
[2024-04-24 15:36] VITALS: TEMP 37
[2024-04-24 15:56] LABS: MANUAL DIFF FLAG NO
[2024-04-24 15:59] LABS: Basophils Absolute Auto 0.1 X10*3/uL (0.0-0.2); Basophils Percent Auto 0.8 % (0-2); Eosinophils Absolute Auto 0.2 X10*3/uL (0.0-0.4); Eosinophils Percent Auto 2.2 % (0-4); Hematocrit 39.3 % (37.0-47.0); Hemoglobin 12.9 g/dl (12.0-16.0); Imm Gran Abs Auto 0.03 X10*3/uL (0.00-0.03); Imm Gran Pct Auto 0.3 % (0.0-0.4); Lymphocytes Absolute Auto 2.3 X10*3/uL (1.2-4.9); Lymphocytes Percent Auto 21.5 % (20-40); Mean Corpuscular HGB Conc 32.8 g/dl (31.0-35.0); Mean Corpuscular Hemoglobin 29.5 pg (27.0-33.0); Mean Corpuscular Volume 89.9 fL (80.0-98.0); Mean Platelet Volume 12.2 fL (9.4-12.3); Monocytes Absolute Auto 0.7 X10*3/uL (0.1-1.2); Monocytes Percent Auto 6.3 % (2-11); Neutrophils Absolute Auto 7.4 x10*3/uL (2.0-8.3); Neutrophils Percent Auto 68.9 % (45-73); Platelet Count 186 X10*3/uL (160-400); Red Blood Count 4.37 X10*6/uL (4.20-5.50); Red Cell Distribution Width 13.2 % (11.0-16.0); White Blood Count 10.8 X10*3/uL (4.8-10.8)
[2024-04-24 16:22] LABS: Alanine Aminotransferase 12 U/L (0-31); Albumin Level 3.3 g/dL (3.5-5.0); Alkaline Phosphatase 62 U/L (39-117); Anion Gap 9 (12-20); Aspartate Amino Transferase 19 U/L (5-31); Bilirubin Total 0.5 mg/dL (0.0-1.0); Blood Urea Nitrogen 18 mg/dL (9-16); Calcium 11.4 mg/dL (8.4-10.2); Carbon Dioxide 26 mmol/L (22-29); Chloride 111 mmol/L (96-108); Creatinine Clr Calc Pharmacy 69.4; Estimated Glomerular Filt Rate > 60; Glucose Random 83 mg/dL (60-115); Magnesium 2.1 mg/dL (1.6-2.6); Potassium 4.2 mmol/L (3.3-5.1); Sodium 142 mmol/L (135-145); Total Protein 7.5 g/dL (6.5-8.0)
[2024-04-24 16:38] LABS: Influenza A PCR NEGATIVE (Negative); Influenza B PCR NEGATIVE (Negative); Resp Syncy Virus RNA Qual PCR NEGATIVE (Negative); SARS COV2 PCR INHOUSE NEGATIVE (Negative)
[2024-04-24 17:12] LABS: Appearance Urine Cloudy; Color Urine Yellow; Glucose Urine UA Negative (Negative); Leukocyte Esterase Urine Moderate (2+) (Negative); Nitrite Urine Positive (Negative); PH 5.5 (5.0-9.0); UMIC TRIGGER UACC YES; Urine Blood Large (3+) (Negative); Urine Ketones Negative (Negative); Urine Protein Trace mg/dL (Neg-Trace)
[2024-04-24 17:14] VITALS: BP 157/57; PULSE 56; RESP 17; O2SAT 97
--- NOTE | 2024-04-24 17:18 | ED_ITS ---
HPI - Altered Mental Status General Chief Complaint: Altered Mental Status Stated Complaint: ALTERED MENTAL STATUS PER EMS Time Seen by Provider: 04/24/24 16:03 Source: EMS Mode of arrival: EMS Limitations: other History of Present Illness ED Provider: Dr. Stacie Turpin HPI narrative: Patient comes to the emergency room via ambulance from [facility]. EMS reports that the staff was concerned that the patient is not acting like herself. Patient's seems to be more quiet than usual. Patient does have history of dementia and is unable to voice her needs. However, when patient is asked if anything is wrong or if she is hurting, patient states now. Patient states that she is hungry. Patient is somnolent, she wakes up to her name, answers a few questions with yes no and falls asleep . overall, patient has no complaints Related Data Home Medications ?Medication ?Instructions ?Recorded ?Confirmed acetaminophen 325 mg tablet 650 mg PO Q4H PRN Fever 10/06/21 10/06/21 amlodipine 5 mg tablet 1 tab PO BEDTIME 10/06/21 10/06/21 apixaban 5 mg tablet (Eliquis) 1 tab PO BID 10/06/21 10/06/21 bisacodyl 10 mg rectal suppository 10 mg VT DAILY PRN Constipation 10/06/21 10/06/21 citalopram 20 mg tablet 1 tab PO DAILY 10/06/21 10/06/21 dextrose 40 % oral gel (Glucose 10 g PO ONCE PRN Hypoglycemia 10/06/21 10/06/21 Gel) glucagon HCl 1 mg solution for 1 mg subcut ONCE PRN Hypoglycemia 10/06/21 10/06/21 injection (Glucagon (HCl) Emergency Kit) insulin aspart U-100 100 unit/mL See Protocol subcut TIDAC 10/06/21 10/06/21 subcutaneous solution (Novolog U-100 Insulin aspart) insulin detemir U-100 100 unit/mL 30 unit subcut DAILY 10/06/21 10/06/21 subcutaneous solution (Levemir U-100 Insulin) insulin detemir U-100 100 unit/mL 38 unit subcut BEDTIME 10/06/21 10/06/21 subcutaneous solution (Levemir U-100 Insulin) lisinopril 10 mg tablet 1 tab PO DAILY 10/06/21 10/06/21 magnesium hydroxide 400 mg/5 mL 30 ml PO DAILY PRN Constipation 10/06/21 10/06/21 oral suspension (Milk of Magnesia) metoprolol tartrate 25 mg tablet 75 mg PO BID 10/06/21 10/06/21 naloxone 4 mg/actuation nasal spray 4 mg intranasal BID PRN Drug 10/06/21 10/06/21 Intoxication Symptoms sennosides 8.6 mg tablet (senna) 17.2 mg PO BEDTIME 10/06/21 10/06/21 sitagliptin phosphate 100 mg 1 tab PO DAILY 10/06/21 10/06/21 tablet (Januvia) Previous Rx's ?Medication ?Instructions ?Recorded lidocaine 4 % topical patch 1 patch transdermal DAILY #10 ea 10/08/21 (Lidocaine Pain Relief) tramadol 50 mg tablet 25 mg (1/2 x 50 mg) PO BID PRN 10/08/21 pain #6 tabs cefuroxime axetil 250 mg tablet 250 mg PO BID #14 tabs 04/24/24 Allergies Allergy/AdvReac Type Severity Reaction Status Date / Time No Known Allergies Allergy Mild NKA Verified 04/24/24 15:24 Review of Systems 2 Review of Systems: Yes Unobtainable due to mental condition (Patient has advanced dementia) [facility] Past Medical History Medical History Hyperparathyroidism Cognitive communication deficit Dysphagia COVID-19 Hyperlipemia Paroxysmal A-fib SVT (supraventricular tachycardia) Major depression DM (diabetes mellitus) Social History Social History Housing: Assisted Living Facility Unable to assess alcohol history related to: Unable to respond Patient Tobacco Use Status: Tobacco use Unknown Smoked in Last 30 Days: No Use of substances other than those prescribed or required for medical reasons: No Advance Directives: Yes Advance Directives on File: Yes Advance Directives Date on File: 10/10/21 Do you have a plan to hurt others: No Plan service: No Physical Exam ED Vital Signs: Vital Signs - 24 hr 04/24/24 15:20 04/24/24 15:36 04/24/24 17:14 Temperature 98.6 F Pulse Rate 61 56 Respiratory Rate 16 17 Blood Pressure 149/66 H 157/57 H Pulse Oximetry 95 97 Oxygen Delivery Method Room Air Room Air 04/24/24 17:54 Temperature Pulse Rate 56 Respiratory Rate 11 L Blood Pressure 171/66 H Pulse Oximetry 100 Oxygen Delivery Method Room Air BMI result Body Mass Index 31.6 Const Other: Appearance: Alert. Oriented X1. No acute distress. Eyes: Pupils equal, round and reactive to light. ENT: Pharynx normal. Neck: Normal inspection. Neck supple. No lymph nodes noted. No crepitus CVS: Normal heart rate and rhythm. Pulses normal. Normal S1 and S2 Respiratory: No respiratory distress. Breath sounds normal. No Wheezing. No rales Abdomen: Soft and nontender. No rigidity. No distention. Skin: Skin warm and dry. Normal skin color. Normal skin turgor. Extremities: No lower extremity edema. No Lacerations. No Rash Neuro: Oriented x1. No motor deficit. No sensory deficit. CN 2 through 12 grossly intact Psych: calm, cooperative, normal affect Medications Administered Discontinued Medications Generic Name Dose Route Start Last Admin Trade Name Freq PRN Reason Stop Dose Admin Cefuroxime Axetil 250 mg 04/24/24 17:29 04/24/24 17:53 Cefuroxime Axetil 250 Mg Tablet PO 04/24/24 17:30 250 mg ONCE ONE Administration Medical Decision Making Medical Decision Making [facility] Narrative: My interpretation of labs, normal hematology, normal chemistry. Urine is positive for UTI, there is a large amount of blood in the urine, nitrates esterase positive and bacteria with no squamous epithelial cells -patient was given cefuroxime in the ED -my interpretation of CT scan, no intracranial bleed. Differential Diagnosis Differential Diagnoses: The differential diagnosis associated with the presentation includes (UTI, intracranial bleed, decompensation) Admission/Observation Consideration of admission/observation: Escalation of care including admission/observation considered (Given patient's presentation, observation was considered) Lab Data [facility] Lab Attestation statement: I reviewed the patient's lab results. 04/24/24 15:53 04/24/24 15:53 Labs: Lab Results 04/24/24 04/24/24 04/24/24 Range/Units 15:48 15:53 17:03 WBC 10.8 (4.8-10.8) X10*3/uL RBC 4.37 (4.20-5.50) X10*6/uL Hgb 12.9 (12.0-16.0) g/dl Hct 39.3 (37.0-47.0) % MCV 89.9 (80.0-98.0) fL MCH 29.5 (27.0-33.0) pg MCHC 32.8 (31.0-35.0) g/dl RDW 13.2 (11.0-16.0) % Plt Count 186 (160-400) X10*3/uL MPV 12.2 (9.4-12.3) fL Immature Gran % (Auto) 0.3 (0.0-0.4) % Neut % (Auto) 68.9 (45-73) % Lymph % (Auto) 21.5 (20-40) % [place] % (Auto) 6.3 (2-11) % Eos % (Auto) 2.2 (0-4) % Baso % (Auto) 0.8 (0-2) % Lymph # (Auto) 2.3 (1.2-4.9) X10*3/uL [place] # (Auto) 0.7 (0.1-1.2) X10*3/uL Eos # (Auto) 0.2 (0.0-0.4) X10*3/uL Baso # (Auto) 0.1 (0.0-0.2) X10*3/uL Abs Immat Gran (auto) 0.03 (0.00-0.03) X10*3/uL Absolute Neuts (auto) 7.4 (2.0-8.3) x10*3/uL Absolute Nucleated RBC 0.000 (0.0-0.012) X10*3/uL Nucleated RBC % (auto) 0.0 (0.0-0.2) /100WBC Sodium 142 (135-145) mmol/L Potassium 4.2 (3.3-5.1) mmol/L Chloride 111 H (96-108) mmol/L Carbon Dioxide 26 (22-29) mmol/L Anion Gap 9 L (12-20) BUN 18 H (9-16) mg/dL Creatinine 0.64 (0.5-1.4) mg/dL Estim Creat Clear Calc 69.4 Estimated GFR > 60 Random Glucose 83 (60-115) mg/dL Calcium 11.4 H D (8.4-10.2) mg/dL Magnesium 2.1 (1.6-2.6) mg/dL Total Bilirubin 0.5 (0.0-1.0) mg/dL AST 19 (5-31) U/L ALT 12 (0-31) U/L Alkaline Phosphatase 62 (39-117) U/L Total Protein 7.5 (6.5-8.0) g/dL Albumin 3.3 L (3.5-5.0) g/dL Urine Color Yellow Urine Appearance Cloudy Urine pH 5.5 (5.0-9.0) Ur Specific [place] 1.020 (1.005-1.025) Urine Protein Trace (Neg-Trace) mg/dL Urine Glucose (UA) Negative (Negative) mg/dL Urine Ketones Negative (Negative) mg/dL Urine Blood Large (3+) H (Negative) Urine Nitrite Positive H (Negative) Ur Leukocyte Esterase Moderate (2+) H (Negative) Urine RBC 6-10 H (0-2) /HPF Urine WBC 11-20 (0-5) /HPF Ur Squamous Epith Cells 0-2 (0-2) /HPF Urine Bacteria 4+ (None Seen) Hyaline Casts 0-2 (0-2) /LPF Urine Opiates Screen Not Detected (Not Detect) Ur Buprenorphine Scrn Not Detected (Not Detect) ng/mL Ur Oxycodone Screen Not Detected (Not Detect) ng/mL Urine Methadone Screen Not Detected (Not Detect) ng/mL Urine Fentanyl Screen Not Detected (Not Detect) Ur Barbiturates Screen Not Detected (Not Detect) Ur Phencyclidine Scrn Not Detected (Not Detect) Ur Amphetamines Screen Not Detected (Not Detect) U Benzodiazepines Scrn Not Detected (Not Detect) Urine Cocaine Screen Not Detected (Not Detect) U Marijuana (THC) Screen Not Detected (Not Detect) Influenza Type A (PCR) NEGATIVE (Negative) Influenza Type B (PCR) NEGATIVE (Negative) RSV RNA Qual (PCR) NEGATIVE (Negative) SARS-CoV-2 RNA (RT-PCR) NEGATIVE (Negative) Independent Interpretation I performed an independent interpretation of an: CT Scan Radiology Impression Discussion of test interpretation with radiology: I have reviewed the radiologist's reading. Radiologist Impression: Few chronic bilateral lacunar infarcts. There is no evidence of acute intracranial hemorrhage or edematous territorial infarction. Confluent hypoattenuation in the periventricular and deep white matter. Bai-white matter differentiation is preserved. Proportional prominence of the ventricles and sulcal spaces. No evidence for obstructive hydrocephalus. No abnormal mass effect or midline shift. No extra-axial fluid collections. No acute soft tissue or osseous abnormalities. Small air-fluid level with mucous secretions in the left sphenoidal sinus. Otherwise paranasal sinuses, mastoids and middle ear cavities are clear. CT/CT head/brain wo IV con IMPRESSION: 1. No evidence of acute intracranial hemorrhage or edematous territorial infarction. 2. 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 3. Chronic bilateral lacunar infarcts. 4. Small air-fluid level with mucous secretions in the left sphenoidal sinus. Correlate clinically for acute sinusitis. Critical Care Time Critical Care Time Critical Care Time: Yes Total Critical Care Time: 45 Attestation: I have personally provided critical care time. Time includes review of lab data, radiology results, discussion with consultants, and monitoring for potential decompensation. Intervention performed as documented. Discharge Plan Discharge Clinical Impression: Acute UTI Patient Disposition: Home, Self-Care Instructions: Urinary Tract Infection in Older Adults (ED) Additional Instructions: Please follow-up with your primary care physician tomorrow. If you have any worsening or new symptoms, please return to the emergency room or call 911 Prescriptions: New cefuroxime axetil 250 mg tablet 250 mg PO BID Qty: 14 0RF No Action sennosides [senna] 8.6 mg Tablet 17.2 mg PO BEDTIME acetaminophen 325 mg Tablet 650 mg PO Q4H PRN (Reason: Fever) dextrose [Glucose Gel] 40 % Gel 10 g PO ONCE PRN (Reason: Hypoglycemia) Rx Instructions: glucose < 50 amlodipine 5 mg tablet 1 tab PO BEDTIME citalopram 20 mg tablet 1 tab PO DAILY magnesium hydroxide [Milk of Magnesia] 400 mg/5 mL Suspension 30 ml PO DAILY PRN (Reason: Constipation) insulin aspart U-100 [Novolog U-100 Insulin aspart] 100 unit/mL solution See Protocol subcut TIDAC Protocol: Insulin Correction Scale Less than or equal to 110 ---- Give (units): 0 111 to 150 Give (units): 2 151 to 200 Give (units): 4 201 to 250 Give (units): 6 251 to 300 Give (units): 8 301 to 350 Give (units): 10 Greater than 350 Give (units): 12 Call MD if Blood Glucose > : 400 Rx Instructions: 100-150 = 2 units 151-200 = 4 units 201-250 = 6 units 251-300 = 8 units 301-349 = 10 units 350-400 = 12 units bisacodyl 10 mg Suppository 10 mg VT DAILY PRN (Reason: Constipation) lisinopril 10 mg tablet 1 tab PO DAILY metoprolol tartrate 25 mg Tablet 75 mg PO BID Levemir U-100 Insulin 100 unit/mL solution 30 unit subcut DAILY Levemir U-100 Insulin 100 unit/mL solution 38 unit subcut BEDTIME Januvia 100 mg tablet 1 tab PO DAILY Eliquis 5 mg tablet 1 tab PO BID naloxone 4 mg/actuation Pierre,Non-Aerosol 4 mg INTRANASAL BID PRN (Reason: Drug Intoxication Symptoms) Rx Instructions: spray 1 dose into ONE nostril; alternate nostrils w each dose until help arrives Glucagon (HCl) Emergency Kit 1 mg Recon Soln 1 mg SUBCUT ONCE PRN (Reason: Hypoglycemia) Rx Instructions: if glucose < 60 lidocaine [Lidocaine Pain Relief] 4 % Adhesive Patch,Medicated 1 patch transdermal DAILY Qty: 10 0RF Protocol: Apply to: Apply to: knee pain area tramadol 50 mg tablet 25 mg PO BID PRN (Reason: pain) Qty: 6 0RF Print Language: Divehi
[2024-04-24 17:25] LABS: Amphetamine Screen Urine Not Detected (Not Detect); Barbiturates, Urine Not Detected (Not Detect); Benzodiazepines Screen Urine Not Detected (Not Detect); Buprenorphine Scr Not Detected (Not Detect); Cannabinoid Screen Urine Not Detected (Not Detect); Cocaine Screen Urine Not Detected (Not Detect); Fentanyl, urine Not Detected (Not Detect); Methadone Screen, Urine Not Detected (Not Detect); Opiate Screen Urine Not Detected (Not Detect); Oxycodone Screen Urine Not Detected (Not Detect); Phencyclidine Screen Urine Not Detected (Not Detect)
[2024-04-24 17:26] LABS: Bacteria Urine 4+ (None Seen); Hyaline Casts Urine 0-2 /LPF (0-2); Squamous Epithelial Cell Urine 0-2 /HPF (0-2); UACC Culture Trigger YES
[2024-04-24] MEDS: cefuroxime axetiL 250 MG TABLET PO (17:53)
[2024-04-24 17:54] VITALS: BP 171/66; PULSE 56; RESP 11; O2SAT 100
[2024-04-24 20:20] VITALS: BP 171/66; PULSE 56; RESP 15; TEMP 36.9; O2SAT 100
== END 2024-04-24 20:20 | disposition home or self-care (01) ==
PROVIDERS: Physician Assistant Medical; Emergency Provider Emergency Medicine; PCP Internal Medicine
DX: N39.0 Urinary tract infection, site not specified (principal); R41.82 Altered mental status, unspecified; R00.1 Bradycardia, unspecified; Z79.899 Other long term (current) drug therapy; Z51.81 Encounter for therapeutic drug level monitoring; Z03.818 Encounter for observation for suspected exposure to other biological agents ruled out; Z79.01 Long term (current) use of anticoagulants
CPT/HCPCS: 0241U; 51701; 70450; 80053; 80307; 81001; 83735; 85025; 87086; 87088; 87186; 93005; 99284

== ENCOUNTER → 2024-04-24 15:27 | Outpatient (BNV) | payer MEDICARE, OTHER, SELFPAY | PROVIDERS: Emergency Provider Emergency Medicine; PCP Internal Medicine; Visit Provider Internal Medicine Cardiovascular Disease | DX: R94.31 Abnormal electrocardiogram [ECG] [EKG] (principal) | CPT/HCPCS: 93010 ==